=== PATIENT | female | born 1985 | race Caucasian/White ===

== ENCOUNTER 2023-01-29 10:35 | Emergency (ER) | payer MEDICAID, SELFPAY ==
[2023-01-29 10:44] VITALS: BP 99/65; PULSE 95; RESP 16; O2SAT 98
[2023-01-29 10:57] LABS: Appearance Urine Clear (Clear); Bilirubin Urine Negative (Negative); Blood Urine Negative (Negative); Color Urine Yellow (Yellow); Glucose Urine Negative (Negative); Ketones Urine Negative (Negative); Leukocyte Esterase Urine Negative (Negative); Nitrite Urine Negative (Negative); Protein Urine Negative (Negative); Specific Gravity Urine <= 1.005 (1.000-1.030); Urobilinogen Urine 0.2 (0.2-1.0)
[2023-01-29 11:12] LABS: RBC Urine 0-2 (0-2); Squamous Epithelial Cell Urine Few (None-Few); WBC Urine 0-2 (0-5)
--- NOTE | 2023-01-29 13:04 | ED_ITS ---
HPI - General Adult General Date Seen: 01/29/23 Chief complaint: Urogenital Problems, Female Stated complaint: Pain while urinating Time Seen by Provider: 01/29/23 11:02 Source: patient and automobile mechanic apprentice Mode of arrival: ambulatory Limitations: language barrier History of Present Illness HPI narrative: Patient is a 37-year-old Sami-speaking woman, history is obtained with the assistance of a mutual fund manager. She comes in with dysuria for 2 days. She tells me that she has had many urinary tract infections and is scheduled to see urologist later this month. She says most recently she had a UTI and then had pyelonephritis. She was treated with antibiotics and symptoms resolved. She has had dysuria and some pelvic discomfort for a couple of days but no associated fever or flank pain. She denies any vaginal discharge, she has not had any new sexual partners or concerns about exposure to STDs. She is worried about another UTI. She does tell me that Related Data Home Medications Medication Instructions Recorded Confirmed No Known Home Medications 01/29/23 01/29/23 Allergies Allergy/AdvReac Type Severity Reaction Status Date / Time No Known Drug Allergies Allergy Verified 01/29/23 10:44 Review of Systems Status of ROS: Reports: 6 or more systems reviewed and unremarkable except as noted in History and below PFSH PFS Social History Smoking Status: Never smoker Do you use any of these nicotine containing products: None Second hand tobacco smoke exposure: No How often do you have a drink containing alcohol: never How often do you have six or more drinks on one occasion: Never AUDIT-C Alcohol total score: 0 Non-prescribed substance use: denies use service: No Exam Narrative: Exam Narrative: Vital signs reviewed In general, an alert, well-appearing woman. Abdomen soft nontender Back no CVA tenderness Skin warm dry well perfused Const: Vital Signs, click to edit/add: Vital Signs - 24 hr 01/29/23 10:44 Pulse Rate [Pulse Oximeter] 95 Respiratory Rate 16 Blood Pressure [Ri ght Upper Arm] 99/65 Pulse Oximetry 98 Oxygen Delivery Me thod Room Air Course Course Hospital Course: Urinalysis today is entirely negative, 0-2 white cells, 0-2 red cells and no bacteria. Reviewed with her that today's urinalysis is entirely negative, she says that her UA is always negative, but then she has gone to clinic later and they have diagnosed her with a kidney infection based on blood work. This is all been at the [facility]. I tried to clarify this a little bit with her, it sounds like she has had a CT scan in the past, has a kidney stone which has not moved. She does not know whether there has ever been any inflammation on her CT scan. She believe she has had a positive urine culture once in the past. The urinalysis today really is not at all suggestive of urinary tract infection, and I tried to suggest that we await the culture results. I have discussed with her that at this time, it would suggest that her dysuria is not caused by urinary tract infection, and that there are other potential causes of dysuria such as pelvic infections. However, she says she knows her body, and says that she believes her symptoms are due to urinary tract infection and would prefer to start antibiotics, as if she does not start antibiotics now she believes this will develop into another kidney infection. As such, going to start Macrobid. Will see what the culture shows. She has urology follow-up pending. Certainly, if symptoms change if she develops new fevers, flank pain, vomiting etcetera she should come back. Otherwise, discussed with her that if her symptoms do not resolve with antibiotics I would recommend close follow-up with clinic to determine whether another etiology is responsible for her dysuria. Vital Signs Vital signs: Initial Vital Signs Temperature Source Temporal Artery Scan 01/29/23 10:44 Pulse Rate 95 01/29/23 10:44 Respiratory Rate 16 01/29/23 10:44 Blood Pressure 99/65 01/29/23 10:44 Blood Pressure Mean 76 01/29/23 10:44 Blood Pressure Position Sitting 01/29/23 10:44 Pulse Oximetry 98 01/29/23 10:44 Oxygen Delivery Method 01/29/23 10:44 Vital Signs Pulse Rate 95 01/29/23 10:44 Respiratory Rate 16 01/29/23 10:44 Blood Pressure 99/65 01/29/23 10:44 Pulse Oximetry 98 01/29/23 10:44 Oxygen Delivery Method 01/29/23 10:44 Pulse Rate 95 01/29/23 10:44 Respiratory Rate 16 01/29/23 10:44 Blood Pressure 99/65 01/29/23 10:44 Pulse Oximetry 98 01/29/23 10:44 Oxygen Delivery Method 01/29/23 10:44 Medical Decision Making Lab Data Labs: Lab Results 01/29/23 Range/Units 10:50 Urine Color Yellow (Yellow) Urine Appearance Clear (Clear) Urine pH 6.0 (5.0-8.5) Ur Specific [place] <= 1.005 (1.000-1.030) Urine Protein Negative (Negative) Urine Glucose (UA) Negative (Negative) Urine Ketones Negative (Negative) Urine Blood Negative (Negative) Urine Nitrite Negative (Negative) Urine Bilirubin Negative (Negative) Urine Urobilinogen 0.2 (0.2-1.0) Ur Leukocyte Esterase Negative (Negative) Urine RBC 0-2 (0-2) Urine WBC 0-2 (0-5) Ur Squamous Epith Cells Few (None-Few) Urine Bacteria None (None) Discharge Plan Discharge Clinical Impression: Dysuria Patient Disposition: Home, Self-Care Condition: Stable Instructions: Dysuria (ED) Additional Instructions: Antibiotic as prescribed. Follow up in your clinic if you are not improved over the next couple of days, as urinalysis is normal today and it is not clear that your symptoms are caused by urinary tract infection. If you are worsening, develop fevers, flank pain, vomiting, or other worsening, return to the emergency department. Otherwise, urology follow-up as planned. Prescriptions: No Action No Known Home Medications Follow Up/Referrals: Rose Mary Valle MD [Primary Care Provider] - Stand Alone Forms: [facility] Info Instructions
== END 2023-01-29 12:56 | disposition home or self-care (01) ==
LOC: ED 12:32
PROVIDERS: Emergency Provider Emergency Medicine; PCP Family Medicine
DX: R30.0 Dysuria (principal)
CPT/HCPCS: 81001; 87086; 99283; T1013

== ENCOUNTER 2024-12-18 02:32 | Emergency (ER) | payer OTHER, SELFPAY ==
[2024-12-18 02:38] VITALS: BP 116/87; PULSE 87; RESP 16; TEMP 35.7; O2SAT 95; BMI 27.5
--- NOTE | 2024-12-18 02:45 | CRLHL7_ITS ---
For Patients: As a result of the Century Cures Act, medical imaging exams and procedure reports are released immediately into your electronic medical record. You may view this report before your referring provider. If you have questions, please contact your health care provider. INDICATION: Flank pain. TECHNIQUE: CT abdomen and pelvis without contrast. COMPARISON: None. FINDINGS: Lower chest: Unremarkable. Liver: Normal in size and attenuation. No suspicious masses. Gallbladder and bile ducts: No stones or inflammation. No biliary dilatation. Pancreas: Unremarkable. No mass or inflammation. Spleen: Normal in size. No masses. Adrenal glands: Normal in size. No nodules. Kidneys: Normal in size. No suspicious masses, stones, or hydronephrosis. GI tract: Unremarkable. Normal in caliber. No sign of mass or inflammation. Normal appendix (). Vasculature: Abdominal aorta is normal in caliber. Lymph nodes: Multiple prominent and mildly enlarged right lower quadrant lymph nodes. Peritoneum/Abdominal Wall: Unremarkable. No sign of mass or infiltration. No free air or significant free fluid. Pelvis: Bladder is decompressed. Reproductive organs are unremarkable. Bones: Unremarkable for age. IMPRESSION: 1. No radiopaque obstructive urolithiasis or hydronephrosis. 2. Multiple prominent and mildly enlarged right lower quadrant lymph nodes. Normal appendix. Findings are overall suggestive of mesenteric adenitis. Please note that all CT scans at this facility use dose modulation, iterative reconstruction, and/or weight-based dosing when appropriate to reduce radiation dose to as low as reasonably achievable. Dictated by Vlad Aguilar MD @ 12/18/2024 3:27:11 AM (Electronically Signed)
[2024-12-18] MEDS: KETOROLAC 30 MG/ML inj IVP (02:57)
[2024-12-18] MEDS: 0.9 % SODIUM CHLORIDE 1000 ml 1,000 ML IV (02:58)
[2024-12-18 02:59] LABS: Basophils Percent Auto 0.5 % (0.0-3.0); Eosinophils Percent Auto 0.6 % (0.0-7.0); Hematocrit 40.4 % (33.0-51.0); Hemoglobin* 13.4 gm/dL (12.0-16.0); Immature Granulocytes Pct Auto 0.2 %; Lymphocytes Percent Auto 11.9 % (20-44); Mean Corpuscular HGB Conc 33 gm/dL (32-36); Mean Corpuscular Hemoglobin 29 pg (26-34); Mean Corpuscular Volume 89 fL (80-100); Monocytes Percent Auto 6.3 % (0.0-11.0); Neutrophils Percent Auto 80.5 % (42.0-72.0); Platelet Count* 252 K/uL (140-440); RDW Coefficient of Variation % 11.7 % (11.5-15.5); Red Blood Count 4.56 m/uL (4.00-5.20); White Blood Count* 12.63 K/uL (4.50-11.00)
[2024-12-18 03:00] LABS: Slide Review Reflex No
[2024-12-18 03:07] LABS: Bacteria Urine Few
[2024-12-18 03:12] LABS: Albumin* 4.9 g/dL (3.3-5.0); Chloride* 101 mmol/L (96-114); Potassium* 4.5 mmol/L (3.6-5.1); Sodium* 137 mmol/L (135-149)
[2024-12-18 03:14] LABS: Creatinine* 0.6 mg/dL (0.5-1.5); Est. Creatinine Clearance* 115.52; Estimated Glomerular Filt Rate 118 ml/min
[2024-12-18 03:15] LABS: Alanine Aminotransferase* 17 U/L (4-35); Alkaline Phosphatase* 36 U/L (40-150); Anion Gap 10 mEq/L (7-15); Aspartate Amino Transferase* 26 U/L (12-35); Bilirubin Total* 0.7 mg/dL (0.1-1.5); Blood Urea Nitrogen* 19 mg/dL (5-24); Carbon Dioxide* 26 mmol/L (20-32); Glucose* 123 mg/dL (60-115); Total Protein* 8.5 g/dL (6.0-8.3)
--- NOTE | 2024-12-18 03:57 | ED_ITS ---
HPI - Abdominal Pain General Chief Complaint: Abdominal Pain Stated Complaint: abdominal pain Time Seen by Provider: 12/18/24 02:44 History of Present Illness HPI narrative: Patient is a 39-year-old woman who presents with lower abdominal pain as well as pain in the left flank. She has had kidney stones in the past is worried she might have a UTI versus kidney stones. She has had no fevers no chills no night sweats no nausea no vomiting. Pain is 6/10. She has had no recent symptoms. No recent pregnancies. She has otherwise been in her usual state of health is been afebrile. Patient has tried Tylenol Motrin at home with no improvement in her symptoms. Related Data Home Medications ?Medication ?Instructions ?Recorded ?Confirmed No Known Home Medications 12/18/24 12/18/24 Previous Rx's ?Medication ?Instructions ?Recorded sulfamethoxazole 800 1 tab PO BID 5 days #10 tabs 12/18/24 mg-trimethoprim 160 mg tablet (Bactrim DS) Allergies Allergy/AdvReac Type Severity Reaction Status Date / Time No Known Drug Allergies Allergy Verified 01/29/23 10:44 Review of Systems Status of ROS Reports: 10 or more systems reviewed and unremarkable except as noted in History and below PFSH PFS Social History Smoking Status: Never smoker Do you use any of these nicotine containing products: None Second hand tobacco smoke exposure: No How often do you have a drink containing alcohol: never How often do you have six or more drinks on one occasion: Never AUDIT-C Alcohol total score: 0 Non-prescribed substance use: denies use service: No Exam Narrative: Exam Narrative: EXAM GENERAL: Patient appears comfortable and well. EYES: No scleral icterus. ENT: Tympanic membranes and oropharynx normal. THYROID: no thyroid nodules or thyromegaly. LYMPH: No supraclavicular or cervical lymphadenopathy. SKIN: Visible skin seen during exam normal or with benign process only. EXT: No dependent lower extremity pedal edema. HEART: Regular rate and rhythm with no murmurs, rubs, or gallops. LUNGS: Clear to auscultation bilaterally with no crackles or wheezes. ABD: Soft, non tender, non distended. PSYCH: Good eye contact, speech is not pressured. Const: Vital Signs, click to edit/add: Vital Signs - 24 hr 12/18/24 02:38 Temperature 96.3 F L Pulse Rate [Pulse Oximeter] 87 Respiratory Rate 16 Blood Pressure [Ri ght Upper Arm] 116/87 Pulse Oximetry 95 Oxygen Delivery Me thod Room Air Course Course ED Course: Patient seen and examined. Vital Signs Vital signs: Initial Vital Signs Temperature 96.3 F L 12/18/24 02:38 Temperature Source Temporal Artery Scan 12/18/24 02:38 Pulse Rate 87 12/18/24 02:38 Respiratory Rate 16 12/18/24 02:38 Blood Pressure 116/87 12/18/24 02:38 Blood Pressure Mean 96 12/18/24 02:38 Blood Pressure Position Standing 12/18/24 02:38 Pulse Oximetry 95 12/18/24 02:38 Oxygen Delivery Method Room Air 12/18/24 02:38 Vital Signs Temperature 96.3 F L 12/18/24 02:38 Pulse Rate 87 12/18/24 02:38 Respiratory Rate 16 12/18/24 02:38 Blood Pressure 116/87 12/18/24 02:38 Pulse Oximetry 95 12/18/24 02:38 Oxygen Delivery Method Room Air 12/18/24 02:38 Temperature 96.3 F L 12/18/24 02:38 Pulse Rate 87 12/18/24 02:38 Respiratory Rate 16 12/18/24 02:38 Blood Pressure 116/87 12/18/24 02:38 Pulse Oximetry 95 12/18/24 02:38 Oxygen Delivery Method Room Air 12/18/24 02:38 Medications Administered Medications: Discontinued Medications Generic Name Dose Route Start Last Admin Trade Name Freq PRN Reason Stop Dose Admin Sodium Chloride 1,000 mls @ 1,000 mls/hr 12/18/24 02:54 12/18/24 02:58 0.9 % Sodium Chloride 1000 Ml IV 12/18/24 03:53 1,000 mls/hr .Q1H PAT Administration Ketorolac Tromethamine 30 mg 12/18/24 02:54 12/18/24 02:57 Ketorolac 30 Mg/Ml Inj IVP 12/18/24 02:55 30 mg ONCE ONE Administration MDM - Abdominal Pain MDM Narrative Medical decision making narrative: Patient presents with severe left-sided flank and lower abdominal pain. UA is consistent with UTI although only a small amount is produced and urinalysis results were limited. CT abdomen pelvis normal no evidence of kidney stone. Labs are reassuring. At this point since she is a very symptomatic and to give her a g Rocephin and recommended Bactrim for the next 5 days. I realize this is fairly intense however her symptoms are quite severe. She will drink plenty fluids get plenty of rest follow-up with her primary physician as needed. Lab Data Labs: Lab Results 12/18/24 12/18/24 Range/Units 02:55 03:06 WBC 12.63 H (4.50-11.00) K/uL RBC 4.56 (4.00-5.20) m/uL Hgb 13.4 (12.0-16.0) gm/dL Hct 40.4 (33.0-51.0) % MCV 89 (80-100) fL MCH 29 (26-34) pg MCHC 33 (32-36) gm/dL RDW Coeff of Patricio 11.7 (11.5-15.5) % Plt Count 252 (140-440) K/uL Neut % (Auto) 80.5 H (42.0-72.0) % Lymph % (Auto) 11.9 L (20-44) % [place] % (Auto) 6.3 (0.0-11.0) % Eos % (Auto) 0.6 (0.0-7.0) % Baso % (Auto) 0.5 (0.0-3.0) % Neut # (Auto) 10.20 H (1.7-7.0) K/uL Lymph # (Auto) 1.50 (0.90-2.90) K/uL [place] # (Auto) 0.80 (0.00-0.90) K/UL Eos # (Auto) 0.10 (0.00-0.50) K/uL Baso # (Auto) 0.10 (0.00-0.30) K/uL Abs Immat Gran (auto) 0.00 (0.00-0.30) K/uL Imm/Tot Granulo (auto) 0.2 % Sodium 137 (135-149) mmol/L Potassium 4.5 (3.6-5.1) mmol/L Chloride 101 (96-114) mmol/L Carbon Dioxide 26 (20-32) mmol/L Anion Gap 10 (7-15) mEq/L BUN 19 (5-24) mg/dL Creatinine 0.6 (0.5-1.5) mg/dL Estimated Creat Clear 115.52 Estimated GFR 118 ml/min Glucose 123 H (60-115) mg/dL Calcium 9.0 (8.4-10.6) mg/dL Total Bilirubin 0.7 (0.1-1.5) mg/dL AST 26 (12-35) U/L ALT 17 (4-35) U/L Alkaline Phosphatase 36 L (40-150) U/L Total Protein 8.5 H (6.0-8.3) g/dL Albumin 4.9 (3.3-5.0) g/dL Urine Color Cancelled Urine Appearance Cancelled Urine pH Cancelled Ur Specific [place] Cancelled Urine Protein Cancelled Urine Glucose (UA) Cancelled Urine Ketones Cancelled Urine Blood Cancelled Urine Nitrite Cancelled Urine Bilirubin Cancelled Urine Urobilinogen Cancelled Ur Leukocyte Esterase Cancelled Urine RBC Cancelled 2-5 A Urine WBC Cancelled 2-5 Urine WBC Clumps Cancelled Ur Squamous Epith Cells Cancelled None [place] Biurate Crystals Cancelled Calcium Carbonate Cryst Cancelled Calcium Phosphate Cryst Cancelled Calcium Oxalate Crystal Cancelled Cystine Crystals Cancelled Uric Acid Crystals Cancelled Triple Phos Crystals Cancelled Sulfur Crystals Cancelled Cholesterol Crystals Cancelled Tyrosine Crystals Cancelled Hippuric Acid Crystals Cancelled Amorphous Sediment Cancelled Other Sediment Cancelled Urine Bacteria Cancelled Few A Fatty Casts Cancelled Hyaline Casts Cancelled Fine Granular Casts Cancelled Coarse Granular Casts Cancelled Waxy Casts Cancelled RBC Casts Cancelled WBC Casts Cancelled Other Casts Cancelled Urine Starch Cancelled Urine Mucus Cancelled Urine Trichomonas Cancelled Urine Yeast Cancelled Discharge Plan Discharge Clinical Impression: UTI (urinary tract infection) Patient Disposition: Home, Self-Care Condition: Stable Instructions: Urinary Tract Infection in Women (ED) Activity Level: No Restrictions Discharge Diet: Regular Prescriptions: New sulfamethoxazole-trimethoprim [Bactrim DS] 800-160 mg tablet 1 tab PO BID 5 Days Qty: 10 0RF No Action No Known Home Medications Follow Up/Referrals: Rose Mary Valle MD [Primary Care Provider] - Stand Alone Forms: My[facility] Info Instructions
[2024-12-18] MEDS: cefTRIAXone 1 GM in 0.9 % SODIUM CHLORIDE Mini-bag 100 ML IVPB (04:06)
== END 2024-12-18 04:30 | disposition home or self-care (01) ==
LOC: ED 04:14
PROVIDERS: Emergency Provider Internal Medicine; PCP Family Medicine
DX: N39.0 Urinary tract infection, site not specified (principal)
CPT/HCPCS: 36415; 74176; 80053; 81001; 81003; 81015; 85025; 87086; 96361; 96374; 96375; 99283; 99284; J0696; J1885; J7030

== ENCOUNTER 2025-07-07 20:11 | Emergency (ER) | payer MEDICAID, SELFPAY ==
--- OUTSIDE RECORDS SUMMARY | 2025-07-07 20:14 | XMS_ITS | Clinical Summary ---
Author Organization [facility] Address [address] [place] [address] Care Team Providers Care Principal Hardware Architect Name Role Phone Rose Mary Valle MD Primary Care Provider Allergies No known active allergies Medications No known medications Active Problems Problem Noted Date Diagnosed Date Pap smear for cervical cancer screening 03/13/20 24 Overview (03/13/2024): 02/2024 NIL/HPV negative Plan: HPV based testing in 5 years H. pylori infection 09/11/2017 Overview (09/11/2017): EGD 08/2017 H. pylori Resolved Problems Problem Noted Date Diagnosed Date Resolved Date Care and examination of lactating mother 02/19/2022 12/18/2024 08/07/2021 12/18/2024 Overview (02/07/2022): Component Latest Ref Rng & Units 02/05/2022 Vaginal/Rectal OB Strep B PCR Positive (A) Estimated Date of Delivery: 03/03/22 Patient's last menstrual period was 05/27/2021 (exact date). Last Tdap- 12/11/2021 Last Flu vaccine- 09/11/2019 Glucose (GTT) result- Component Latest Ref Rng & Units 12/11/2021 HEMOGLOBIN 12.0 - 16.0 g/dL 10.6 (L) MCV 80 - 100 fL 88 GLUCOSE,GESTATIONAL 65 - 140 mg/dL 143 (H) TREPONEMA PALLIDUM Negative Negative Component Latest Ref Rng & Units 12/15/2021 GLUC URSULA,FAST (GEST) 65 - 95 mg/dL 121 (H) GLUC URSULA,1HR (GEST) 65 - 180 mg/dL 156 GLUC URSULA,2HR (GEST) 65 - 155 mg/dL 156 (H) GLUC URSULA,3HR (GEST) 65 - 140 mg/dL 147 (H) 20 week US FINDINGS: Sonographic imaging demonstrates a single living intrauterine gestation. Fetus demonstrates a regular cardiac rate of 154 beats per minute. Fetus has a vertex position. The placenta lies posteriorly without evidence of placenta previa. Amniotic fluid volume appears normal. Single deepest vertical pocket: 3.7 cm. The cervix is closed and measures 3.3 cm in length. The composite ultrasound gestational age is calculated at 24 weeks 4 days with an estimated sonographic due date of 03/01/2022. No Known Allergies OB History Para Term AB Living 5 4 4 0 0 4 SAB TAB Ectopic Multiple Live Births 0 0 0 0 1 # Outcome Date GA Lbr Eliel/2nd Weight Sex Delivery Anes PTL Lv 5 Current 4 Term 09/09/18 39w1d 3.01 kg (6 lb 10 oz) F Vag NONE N RENATO Name: Silvestre 3 Term 02/19/15 39w1d 3.01 kg (6 lb 10 oz) F Vag 2 Term 09/02/13 40w0d 06:00 2.72 kg (6 lb) F Vag Comments: System Generated. Please review and update details. 1 Term 02/17/11 40w0d 04:00 2.44 kg (5 lb 6 oz) F Vag Create lab flowsheet for OB labs- Component Latest Ref Rng & Units 08/03/2021 08/03/2021 08/03/2021 12:02 PM 12:06 PM 12:06 PM HEMOGLOBIN 12.0 - 16.0 g/dL 12.3 MCV 80 - 100 fL 87 ANTIBODY SCREEN Negative Negative SPECIMEN EXPIRATION DATE/TIME 08/06/21 23:59 RUBELLA IGG ANTIBODY Positive CHLAMYDIA PROBE Negative N GONORRHOEAE PROBE Negative HIV-1/HIV-2 ANTIBODY Non-Reactive Non-Reactive ABORH O Rh Positive HBSAG Nonreactive Nonreactive TREPONEMA PALLIDUM Negative Negative Component Latest Ref Rng & Units 08/03/2021 12:06 PM HEMOGLOBIN 12.0 - 16.0 g/dL MCV 80 - 100 fL ANTIBODY SCREEN Negative SPECIMEN EXPIRATION DATE/TIME RUBELLA IGG ANTIBODY 7.42 CHLAMYDIA PROBE N GONORRHOEAE PROBE HIV-1/HIV-2 ANTIBODY Non-Reactive ABORH HBSAG Nonreactive TREPONEMA PALLIDUM Negative Past Medical History: . Date Supervision of other normal 03/10/2013 Past Surgical History: . Laterality Date ESOPHAGOGASTRODUODENOSCOPY N/A EGD 08/2017 H. pylori NO PREVIOUS SURGERY No data on file. Problems (from 08/03/21 to present) No problems associated with this episode. Jessie Jones RN.....08/07/2021 8:16 AM Encounter for supervision of normal in third trimester 03/25/2018 11/10/2018 02/21/2018 11/10/2018 Overview (09/08/2018): GBS Negative Component Latest Ref Rng & Units 2018 Culture No Group B Streptococcus isolated. Estimated Date of Delivery: 09/15/18 Patient's last menstrual period was 12/09/2017 (exact date). Last Tdap- 06/23/2018 Last Flu vaccine- declines No Known Allergies Obstetric History T3 L3 SAB0 TAB0 Ectopic0 Multiple0 Live Births0 # Outcome Date GA Lbr Eliel/2nd Weight Sex Delivery Anes PTL Lv 4 Current 3 Term 02/19/15 39w1d 3.01 kg (6 lb 10 oz) F Vag 2 Term 09/02/13 40w0d 06:00 2.72 kg (6 lb) F Vag 1 Term 02/17/11 40w0d 04:00 2.44 kg (5 lb 6 oz) F Vag Create lab flowsheet for OB labs- Component Latest Ref Rng & Units 02/21/2018 02/21/2018 02/21/2018 11:33 AM 11:33 AM 11:33 AM HEMOGLOBIN 12.0 - 16.0 g/dL 12.1 MCV 80 - 100 fL 89 ANTIBODY SCREEN Negative Negative SPECIMEN EXPIRATION DATE/TIME 02/24/18 23:59 RUBELLA IGG ANTIBODY Positive 7.57 HIV-1/HIV-2 ANTIBODY Non-Reactive Non-Reactive ABORH O Rh Positive HBSAG Nonreactive Nonreactive TREPONEMA PALLIDUM Negative Negative TSH 0.35 - 4.94 uIU/mL 0.39 HEMOGLOBIN A1C SCREENING <6.4 % 5.3 GLUCOSE,GESTATIONAL 65 - 139 mg/dL Component Latest Ref Rng & Units 06/23/2018 HEMOGLOBIN 12.0 - 16.0 g/dL MCV 80 - 100 fL ANTIBODY SCREEN Negative SPECIMEN EXPIRATION DATE/TIME RUBELLA IGG ANTIBODY HIV-1/HIV-2 ANTIBODY Non-Reactive ABORH HBSAG Nonreactive TREPONEMA PALLIDUM Negative TSH 0.35 - 4.94 uIU/mL HEMOGLOBIN A1C SCREENING <6.4 % GLUCOSE,GESTATIONAL 65 - 139 mg/dL 160 (H) Past Medical History: Diagnosis Date Supervision of other normal 03/10/2013 Past Surgical History: Procedure Laterality Date ESOPHAGOGASTRODUODENOSCOPY N/A EGD 08/2017 H. pylori NO PREVIOUS SURGERY No data on file. Problem List No episode was linked to this visit. Jessie Crawford RNC.....02/21/2018 2:47 PM Supervision of other normal 07/14/2014 04/08/2015 Overview (02/10/2015): Flu vaccine 09/03/2014 Marginal placenta previa on 20 week ultrasound, 6 cm from os on 28 week ultrasound TDaP 12/06/2014 GBS negative. Supervision of other normal 03/10/2013 10/21/2013 Overview (08/28/2013): It's a girl! TDaP 06/09/13 GBS negative Flu Vaccine 08/28/2013 HEMOGLOBIN (g/dL) Date Value 08/11/2013 12.0 Encounters Date Type Department Care Team Description 06/16/2025 1:25 PM CDT Office Visit [facility] [address] [place] [address] Siddhartha Garrido, Ear Problem (Right Ear feels plugged. Has felt like that for two week now and hears ringing. When she was cleaning her ear she felt like she clogged it ) 06/16/2025 Travel 05/03/2025 8:40 AM CDT Office Visit [facility] [address] [place] [address] Rose Mary Valle MD Physical (39 y.o ) 05/03/2025 Travel 05/03/2025 Telephone [facility] [address] [place] [address] Shellie Quintana MD Prior Authorization (cefadroxil 1 gram tablet (CLOSED)) 04/30/2025 9:50 AM CDT Office Visit [facility] [address] [place] [address] Shellie Quintana MD Urinary Tract Infection (3 days ago - burning sensation, right back pain ) 04/30/2025 Telephone [facility] [address] [place] [address] Shellie Quintana MD Refill Request (Cefoxidril) 04/30/2025 Travel from Last 3 Months Immunizations Immunization Administration Dates Next Due AMB Influenza, IIV4 PF (=>6 mos Flulaval,Fluzone Fluarix)(Flu Clinic Only) 09/11/2019 Hepatitis B (Adult) 05/03/2025 Influenza, IIV3 (Age >=3 years) 08/28/2013 Influenza, IIV4 08/08/2017,09/03/2014 Td (Age >=7 Years) 10/09/2010 Tdap 12/11/2021, 8,12/06/2014,2012 Family History Medical History Relation Name Comments Diabetes Mother Relation Name Status Comments Mother Social History Tobacco Use Types Packs/Day Years Used Date Smoking Tobacco: Never Smokeless Tobacco: Never Tobacco Cessation:Counseling Given: No Alcohol Use Standard Drinks/Week Comments Yes 0 (1 standard drink = 0.6 oz pur e alcohol) seldom, socially PHQ-2 Answer Date Recorded PHQ-2 TOTAL SCORE 0 05/03/2025 Social Connections Answer Date Recorded Do you often feel lonely or isolated from those around you? 0 12/16/2024 Financial Resource Strain Answer Date R ecorded Difficulty of Paying Living Expenses 3 12/16/2024 Difficulty of Paying Living Expenses Not on file 12/16/2024 Food Insecurity Answer Date Recorded Do you worry your food will run out before you are able to buy more? 1 12/16/2024 Transportation Needs Answer Date Record ed Does lack of transportation keep you from medica l appointments? 1 12/16/2024 Does lack of transportation keep you from work, meetings or getting things that you need? 1 12/16/2024 Housing Stability Answer Date Recorded What is your housing situation today? 1 12/16/2024 Utilities Answer Date Recorded Do you have trouble paying f or utilities (for example, heat, electricity, water, phone)? 1 12/16/2024 Comments No Sex and Gender Information Value Date Recorded Sex Assigned at Not on file Legal Sex Female 8:05 AM STEM FRAZER Gender Identity Not on file Sexual Orientation Not on file Obstetrics History Para Term AB IAB SAB Ectopic Multiple Livin g Live Births 5 5 5 5 2 Date Outcome GA Total Labor Labor//3rd Weight Sex Type Anes PTL Renato A1 A5 Name Clin 2010 Term 40w 0d 4h 00m/ 2.44 kg (5 lb 6 oz) F Vag 2012 Term 40w 0d 6h 00m/ 2.72 kg (6 lb) F Vag Comments:System Genera gallito. Please review and update details. 2014 Term 39w 1d 3.01 kg (6 lb 10 oz) F Vag 2017 Term 39w 1d 4h 30m 3.01 kg (6 lb 10 oz) F Vag None N Livin g Silvestre Tori Complications:None Delivery Location:[place] 2021 Term 38w 3d 3.2 kg (7 lb 1 oz) F Vag-S pont Livin g Last Filed Vital Signs Vital Sign Reading Time Taken Comments Blood Pressure 98/66 06/16/2025 1:23 PM CDT Pulse 75 06/16/2025 1:23 PM CDT Temperature 36.9 C (98.4 F) 12/28/2024 9:39 AM STEM FRAZER Respiratory Rate 16 04/06/2024 1:10 PM CDT Oxygen Saturation 99% 06/16/2025 1:23 PM CDT Inhaled Oxygen Concentration - - Weight 74.7 kg (164 lb 11.2 oz) 06/16/2025 1:23 PM CDT Height 167.6 cm (5' 6) 05/03/2025 8:49 AM CDT Body Mass Index 26.58 05/03/2025 8:49 AM CDT Plan of Treatment Health Maintenance Due Date Last Done Comments COVID-19 vaccine series (1 - 2023-25 season) 2024 Hepatitis B series for 19+ (2 of 3 - 19+ 3-dose series) 05/31/2025 05/03/2025 Influenza Vaccine (#1) 2025 9, 08/08/2017, 09/03/2014, Additional history exists BMI (ht and wt on same day) for age 18+ 05/03/2026 05/03/2025, 08/19/2024, 04/01/2024, Additional history exists Depression screening for age 12+ 05/03/2026 05/03/2025, 03/05/2024, 03/02/2024, Additional history exists Pap test for age 21-65 03/02/2029 , 03/02/2024, 07/27/2020, Additional history exists Tetanus booster 12/11/2031 12/11/2021, 05/27, 12/06/2014, Additional history exists HIV for age 15-65 Completed 08/03/2021, , 07/05/2014, Additional history exists Hepatitis C screening for age 18-79 Completed 01/23/2023 Pneumococcal series for age 6-49 Aged Out No longer eligible based on patient's age to complete this topic Procedures Procedure Name Priority Date/Time Associated Diagnosis Comments COMP METABOLIC PANEL Routine 05/03/2025 9:25 AM CDT Recurrent UTI Diabetes mellitus screening URINALYSIS MICROSCOPIC Routine 04/30/2025 10:11 AM CDT UTI (urinary tract infection), uncomplicated URINE CULTURE Routine 04/30/2025 10:11 AM CDT UTI (urinary tract infection), uncomplicated URINALYSIS MACROSCOPIC - [facility] ONLY POC DIP ([facility]) Routine 04/30/2025 10:11 AM CDT UTI (urinary tract infection), uncomplicated DRAPERY ROD ASSEMBLER THIN PREP PAP SCREEN IMAGED Routine 03/02/2024 1:30 PM CDT Cervical cancer screening LC HCV ANTIBODY RFX TO QUANT PCR Routine 01/23/2023 1:45 PM STEM FRAZER Need for hepatitis C screening test ANTI HIV 1/2 Routine 08/03/2021 12:06 PM CDT Supervision of other normal (HC) from Last 3 Months or Most Recently Relevant to Health Maintenance Results * COMP METABOLIC PANEL (05/03/2025 9:25 AM CDT) GLUCOSE 90 65 - 99 mg/dL [facility] Comment: Fasting reference interval UREA NITROGEN (BUN) 15 7 - 25 mg/dL [facility] CREATININE 0.68 0.50 - 0.97 mg/dL [facility] EGFR 115 > OR = 60 mL/min/1. 73m2 [facility] BUN/CREATININE RATIO SEE NOTE: 6 - 22 (calc) [facility] Comment: Not Reported: BUN and Creatinine are within reference range. SODIUM 137 135 - 146 mmol/L [facility] POTASSIUM 4.2 3.5 - 5.3 mmol/L [facility] CHLORIDE 104 98 - 110 mmol/L [facility] CARBON DIOXIDE 25 20 - 32 mmol/L [facility] CALCIUM 9.1 8.6 - 10.2 mg/dL [facility] PROTEIN, TOTAL 7.8 6.1 - 8.1 g/dL [facility] ALBUMIN 4.6 3.6 - 5.1 g/dL [facility] GLOBULIN 3.2 1.9 - 3.7 g/dL (calc) [facility] ALBUMIN/GLOBULIN RATIO 1.4 1.0 - 2.5 (calc) [facility] BILIRUBIN, TOTAL 0.4 0.2 - 1.2 mg/dL [facility] ALKALINE PHOSPHATASE 44 31 - 125 U/L [facility] AST 15 10 - 30 U/L [facility] ALT 15 6 - 29 U/L [facility] Blood BLOOD SPECIMEN / Unknown 05/03/2025 9:25 AM CDT 05/03/2025 9:29 AM CDT Narrative [facility] - 05/04/2025 6:00 AM CDT FASTING:YES FASTING: YES Rose Mary Valle MD CHEMISTRY Final R esult Performing Organization Address City/[facility]/ZIP Co de Phone Number [facility] [address] [place] [address], [facility] [address] [place] [address] * (ABNORMAL) POCT Urinalysis Dipstick Only (04/30/2025 10:11 AM CDT) PH 6.0 5.0 - 8.0 [facility] SPECIFIC GRAVITY 1.010 1.001 - 1.035 [facility] GLUCOSE NEGATIVE NEGATIVE [facility] BILIRUBIN NEGATIVE NEGATIVE [facility] KETONES NEGATIVE NEGATIVE [facility] OCCULT BLOOD TRACE(A) NEGATIVE [facility] PROTEIN NEGATIVE NEGATIVE [facility] NITRITE POSITIVE(A) NEGATIVE [facility] LEUKOCYTE ESTERASE NEGATIVE NEGATIVE [facility] Urine URINE SPECIMEN / Unknown 04/30/2025 10:11 AM CDT 04/30/2025 10:11 AM CDT us Shellie Quintana MD URINE Fi nal Result Performing Organization Address City/[facility]/ZIP Co de Phone Number [facility] [address] [place] [address], [place] [phone] [facility] [address] [place] [address] * URINALYSIS MICROSCOPIC (04/30/2025 10:11 AM CDT) RBC 0-2 0-2, None Seen /HPF 04/30/2025 4:04 PM CDT [facility] WBC 3-5 0-2, 3-5, None Seen /HPF 04/30/2025 4:04 PM CDT [facility] BACTERIA None Seen None Seen, Rare, Few Bacteria/ HPF 04/30/2025 4:04 PM CDT [facility] EPITHELIAL CELLS None Seen None Seen, Few Epi/HPF 04/30/2025 4:04 PM CDT [facility] HYALINE CASTS 0-2 0-2, 3-5 /LPF 04/30/2025 4:04 PM CDT [facility] Urine URINE SPECIMEN / Unknown Non-Blood / Unknown 04/30/2025 10:11 AM CDT 04/30/2025 10:11 AM CDT us Shellie Quintana MD URINE Fi nal Result [facility] [address] [place] [address], * (ABNORMAL) URINE CULTURE (04/30/2025 10:11 AM CDT) CULTURE RESULT(A) 05/02/2025 7:15 AM CDT [facility] CULTURE 10,000-50,000 CFU/mL Escherichia coli 05/02/2025 7:15 AM CDT [facility] Urine URINE SPECIMEN / Unknown Non-Blood / Unknown 04/30/2025 10:11 AM CDT 04/30/2025 10:11 AM CDT Narrative Organism Antibiotic Method Susceptibility Escherichia coli TRIMETHOPRIM/SULF <=1/19: S Escherichia coli AMPICILLIN <=2: S Escherichia coli CEFAZOLIN <=1: S Escherichia coli CEFAZOLIN-UC <=1: S Comment:Cefazolin-UC interpretations are for therapy of uncomplicated UTIs due to E.coli, K.pneumoniae, or P.mirablis. Cefazolin breakpoint is used as a surrogate to predict results for the oral agents - cefdinir, cefuroxime, and cephalexin, when used for therapy of uncomplicated UTIs due to E coli, K, pneumoniae, and P. mirabilis. The FDA recommends cefadroxil susceptibility can be deduced from cefazolin. Escherichia coli GENTAMICIN <=1: S Escherichia coli CEFTRIAXONE <=0.25: S Escherichia coli CEFTAZIDIME <=0.5: S Escherichia coli LEVOFLOXACIN <=0.12: S Escherichia coli CIPROFLOXACIN <=0.06: S Escherichia coli PIPERACILLIN/TAZO <=4: S Escherichia coli AMPICILLIN/SULBACTAM <=2: S Escherichia coli CEFEPIME <=0.12: S Escherichia coli MEROPENEM <=0.25: S Escherichia coli NITROFURANTOIN <=16: S us Shellie Quintana MD MICROBIOLOGY Fi nal Result [facility] [address] [place] [address], * DRAPERY ROD ASSEMBLER THIN PREP PAP SCREEN IMAGED (03/02/2024 1:30 PM CDT) Case Report Gynecologic Cytology Report Case: [id number] Authorizing Provider: Rose Mary Valle MD Collected: 03/02/2024 1330 Ordering Location: [facility] Received: 03/02/2024 1412 Clinic First Screen: Nicolas Jacob Specimen: DRAPERY ROD ASSEMBLER ThinPrep Vial Screening, Cervical 03/11/2024 12:58 PM CDT [facility] INTERPRETATION/ RESULT NEGATIVE FOR INTRAEPITHELIAL LESION OR MALIGNANCY (NIL) (none) 03/11/2024 12:58 PM CDT [facility] at 1258 CDT SPECIMEN ADEQUACY Satisfactory for evaluation No endocervical component seen Scant cellularity 03/11/2024 12:58 PM CDT [facility] HPV REQUEST HPV and PAP 03/11/2024 12:58 PM CDT [facility] Date of LMP 02/20/2024 03/11/2024 12:58 PM CDT [facility] Last Pap Date 07/27/20 03/11/2024 12:58 PM CDT [facility] Last Pap Result NIL 12:58 PM CDT [facility] Abnormal Pap or Newton Bx in last 5 years No 03/11/2024 12:58 PM CDT [facility] Menstrual Status Regular Periods 03/11/2024 12:58 PM CDT [facility] Newton Bx Done Today No 03/11/2024 12:58 PM CDT [facility] Additional Information None given 03/11/2024 12:58 PM CDT [facility] Comment: Cytology is screened at [facility] - [address] [address] and [facility] - [address] [place] [address], [place] [address] and [facility] - [address] [place] [address] Interpreted at [facility] - [address] [place] [address], [place] [address] Automated Review Successful 03/11/2024 12:58 PM CDT [facility] Comment:Specimen processed s uccessfully by automated taker off drying kiln device, ThinPrep Imaging System, [employer] ANCILLARY TESTING DRAPERY ROD ASSEMBLER HPV Ordered, Please see separate report 03/11/2024 12:58 PM CDT [facility] Note The pap test is a screening technique, not a diagnostic procedure. It is used primarily to screen for squamous cancers and precursor lesions. Published studies have shown that it is subject to both false negative and false positive results. The pap test should not be used as the sole means to diagnose or exclude pre-malignant and malignant lesions. 03/11/2024 12:58 PM CDT [facility] Other (Cervical) Non-Blood / Unknown 03/02/2024 1:30 PM CDT 03/02/2024 2:12 PM CDT Rose Mary Valle MD PATHOLOGY/CYTOLOGY Mady mejia Result [facility] [address] [place] [address], [place] * LC HCV ANTIBODY RFX TO QUANT PCR (01/23/2023 1:45 PM STEM FRAZER) Pathologist [facility] HCV Ab Non Reactive Non Reactive 01/25/2023 10:07 PM [facility] ([facility]) Blood BLOOD SPECIMEN / Unknown Venipuncture / Unknown 01/23/2023 1:45 PM STEM FRAZER 01/23/2023 1:50 PM STEM FRAZER Narrative [facility] - 01/25/2023 10:07 PM STEM FRAZER Performed at: [address] [place] [id number] Deliverer Outside: Bogdan Douglas MD, Phone: [phone] Rose Mary Valle MD LABORATORY Final R esult [facility] (CET) [facility] [place] [address], * ANTI HIV 1/2 (08/03/2021 12:06 PM CDT) Pathologist [facility] HIV-1/HIV-2 ANTIBODY Non-Reacti ve Non-Reacti ve 08/03/2021 6:57 PM CDT [facility] Comment:HIV-1 p24 and HIV-1/ HIV-2 Ab not detected. Blood BLOOD SPECIMEN / Unknown Venipuncture / Unknown 08/03/2021 12:06 PM CDT 08/03/2021 12:07 PM CDT Rose Mary Valle MD SEND OUTS Final R esult [facility] [address] [place] [address], [place] from Last 3 Months or Most Recently Relevant to Health Maintenance Additional Health Concerns Infection Onset Date Last Indicated ESBL 09/29/2019 09/29/2019 Insurance MEDICAID [place] Care Teams Principal Hardware Architect Relationship Specialty Start Date End Date Rose Mary Valle MD [address] [facility] [address] PCP - General Family Practice 07/24/13
[2025-07-07 20:26] VITALS: BP 106/71; PULSE 70; RESP 16; TEMP 36.6; O2SAT 98; BMI 27.5
--- NOTE | 2025-07-07 20:40 | ED.FEMALEGU ---
HPI - Female Genitourinary General Time Seen by Provider: 20:40 Date Seen: 07/07/25 Chief complaint: Urogenital Problems, Female Stated complaint: lower stomach pain Time Seen by Provider: 07/07/25 20:39 Source: patient, RN notes reviewed and casino floorperson Mode of arrival: ambulatory Limitations: no limitations History of Present Illness HPI Narrative: This 39-year-old female is coming in with lower abdominal pain and dysuria. On Saturday she had lower abdominal pain, feels it is more pelvic now. She has had discomfort with urination and burning with urination. She has noted increased frequency. No hematuria. She has been going frequently with small amounts. She last took ibuprofen about 6:00 p.m., has been alternating Tylenol and ibuprofen, pain is still a 6/10. She has had some chills but does not have a thermometer at home, did not check her temperature. She did have an episode of diarrhea last week that she thought was an illness. That has subsided. Her has had a vasectomy. She has a prior urine culture in our system from 12/18/2024 with E coli, greater than 100,000 CFU with resistance only to ampicillin, otherwise sensitive. No vaginal discharge or drainage, no vaginal itching. No history of kidney stones, negative CT in November for stones but did show probable mesenteric adenitis. MD elicited complaint: dysuria Related Data Previous Rx's ?Medication ?Instructions ?Recorded sulfamethoxazole 800 1 tab PO BID 5 days #10 tabs 12/18/24 mg-trimethoprim 160 mg tablet (Bactrim DS) cephalexin 500 mg tablet 500 mg PO TID #15 tabs 07/07/25 Allergies Allergy/AdvReac Type Severity Reaction Status Date / Time No Known Drug Allergies Allergy Verified 01/29/23 10:44 Review of Systems Status of ROS: Reports: 6 or more systems reviewed and unremarkable except as noted in History and below PFSH PFS Social History Smoking Status: Never smoker Do you use any of these nicotine containing products: None Second hand tobacco smoke exposure: No How often do you have a drink containing alcohol: never How often do you have six or more drinks on one occasion: Never AUDIT-C Alcohol total score: 0 Non-prescribed substance use: denies use service: No Exam Const: Vital Signs, click to edit/add: Vital Signs - 24 hr 07/07/25 20:26 Temperature 98 F Pulse Rate [Pulse Oximeter] 70 Respiratory Rate 16 Blood Pressure [Ri ght Upper Arm] 106/71 Pulse Oximetry 98 Oxygen Delivery Me thod Room Air This 39-year-old female is alert, interactive, no apparent distress. Sitting up in the bed, able to lie back without difficulty. Speaking in complete sentences, voice is normal. Conjugate gaze, sclera clear. Lungs are clear, good air entry, no wheezing crackles. CV regular rate and rhythm, no murmur. She has no tachypnea, no accessory muscle use. Abdomen with normal bowel sounds, soft, no distention noted. No organomegaly, no rebound or guarding but she does complain of generalized lower abdominal/pelvic discomfort throughout. There really is no rebound or guarding. Documenting provider has reviewed patient's vital signs: yes Course Course ED Course: She is requesting something for discomfort, will try dose of IV Toradol. Do not think she needs imaging at this time looking at her most recent ED visits back in November. She has provided urine, will await that result. Will confirm negative urine test. Will get basic labs. If urinalysis is not showing us concern of infection or if there is concerning changes on her other basic labs, may consider imaging. May need to consider CT imaging and or pelvic imaging, await labs to potentially guide any imaging. Think this likely represents UTI at this point. We will consider other etiologies based on any changes in labs. Reevaluation(s) Time of Reevaluation #1: 21:50 Reevaluation #1: Did review laboratory findings with patient, her CBC and C-reactive protein are reassuring against any significant infection. She did tell me that she did feel a little left flank discomfort developing. She is receiving 2 g IV Rocephin given that she was not feeling well. We did discuss ascending urinary tract infection with pyelonephritis. It is doubtful that she needs hospitalization, again we are giving 2 g IV Rocephin to start her antibiotics. She is not meeting hospitalization criteria. She can keep orals, no fever, labs and vitals are reassuring. I do think she is stable to discharge for outpatient trial of antibiotics. We did review signs and symptoms for return. She does feel like her symptoms have improved with the Toradol. Vital Signs Vital signs: Initial Vital Signs Temperature 98 F 07/07/25 20:26 Temperature Source Temporal Artery Scan 07/07/25 20:26 Pulse Rate 70 07/07/25 20:26 Pulse Rhythm Regular 07/07/25 20:26 Respiratory Rate 16 07/07/25 20:26 Blood Pressure 106/71 07/07/25 20:26 Blood Pressure Mean 82 07/07/25 20:26 Blood Pressure Position Sitting 07/07/25 20:26 Pulse Oximetry 98 07/07/25 20:26 Oxygen Delivery Method Room Air 07/07/25 20:26 Vital Signs Temperature 98 F 07/07/25 20:26 Pulse Rate 70 07/07/25 20:26 Respiratory Rate 16 07/07/25 20:26 Blood Pressure 106/71 07/07/25 20:26 Pulse Oximetry 98 07/07/25 20:26 Oxygen Delivery Method Room Air 07/07/25 20:26 Temperature 98 F 07/07/25 20:26 Pulse Rate 70 07/07/25 20:26 Respiratory Rate 16 07/07/25 20:26 Blood Pressure 106/71 07/07/25 20:26 Pulse Oximetry 98 07/07/25 20:26 Oxygen Delivery Method Room Air 07/07/25 20:26 Medications Administered Medications: Discontinued Medications Generic Name Dose Route Start Last Admin Trade Name Freq PRN Reason Stop Dose Admin Ceftriaxone Sodium 2 gm/ 100 mls @ 200 mls/hr 07/07/25 21:22 07/07/25 22:02 Sodium Chloride IVPB 07/07/25 21:23 Infused ONCE ONE Infusion Ketorolac Tromethamine 15 mg 07/07/25 20:50 07/07/25 21:01 Ketorolac 15 Mg/Ml Inj IVP 07/07/25 20:51 15 mg ONCE ONE Administration MDM - Female Genitourinary Lab Data Labs: Lab Results 07/07/25 07/07/25 07/07/25 Range/Units 20:39 20:50 21:03 WBC 11.08 H (4.50-11.00) K/uL RBC 4.15 (4.00-5.20) m/uL Hgb 12.2 (12.0-16.0) gm/dL Hct 36.8 (33.0-51.0) % MCV 89 (80-100) fL MCH 29 (26-34) pg MCHC 33 (32-36) gm/dL RDW Coeff of Patricio 11.9 (11.5-15.5) % Plt Count 272 (140-440) K/uL Neut % (Auto) 66.9 (42.0-72.0) % Lymph % (Auto) 23.8 (20-44) % Payne % (Auto) 7.1 (0.0-11.0) % Eos % (Auto) 1.4 (0.0-7.0) % Baso % (Auto) 0.6 (0.0-3.0) % Neut # (Auto) 7.40 H (1.7-7.0) K/uL Lymph # (Auto) 2.60 (0.90-2.90) K/uL Payne # (Auto) 0.80 (0.00-0.90) K/UL Eos # (Auto) 0.20 (0.00-0.50) K/uL Baso # (Auto) 0.10 (0.00-0.30) K/uL Abs Immat Gran (auto) 0.00 (0.00-0.30) K/uL Imm/Tot Granulo (auto) 0.2 % Sodium 136 (135-149) mmol/L Potassium 4.0 (3.6-5.1) mmol/L Chloride 103 (96-114) mmol/L Carbon Dioxide 27 (20-32) mmol/L Anion Gap 6 L (7-15) mEq/L BUN 12 (5-24) mg/dL Creatinine 0.7 (0.5-1.5) mg/dL Estimated Creat Clear 99.01 Estimated GFR 114 ml/min Glucose 105 (60-115) mg/dL Lactate 0.6 (0.5-1.9) mmol/L Calcium 9.0 (8.4-10.6) mg/dL C-Reactive Protein 0.6 (0.5-1.0) mg/dL Urine Color [place] A (Yellow) Urine Appearance Clear (Clear) Urine pH 6.0 (5.0-8.5) Ur Specific [place] 1.010 (1.000-1.030) Urine Protein 1+ A (Negative) Urine Glucose (UA) Trace A (Negative) Urine Ketones Negative (Negative) Urine Blood 2+ A (Negative) Urine Nitrite Positive A (Negative) Urine Bilirubin Negative (Negative) Urine Urobilinogen 1.0 (0.2-1.0) Ur Leukocyte Esterase 3+ A (Negative) Urine RBC 2-5 A (0-2) Urine WBC 10-25 A (0-5) Ur Squamous Epith Cells Few (None-Few) Urine Bacteria Few A (None) Urine HCG, Qual Negative (Negative) Lab Acknowledgement Test Added Discharge Plan Discharge Clinical Impression: Urinary tract infection Patient Disposition: Home, Self-Care Condition: Stable Instructions: Urinary Tract Infection in Women (ED) Additional Instructions: Start oral antibiotics tomorrow and take as prescribed. Drink plenty of fluids, this can help with minimizing urinary tract infection symptoms. These should go way with treatment with antibiotics as well. Your appetite for solid food should improve as you feel better. It is important to complete antibiotics. If you are not improving in the next couple days on the antibiotics, feel you are worsening or becoming more ill at any point, please seek re-evaluation. Activity Level: Activity as Tolerated Prescriptions: New cephalexin 500 mg tablet 500 mg PO TID Qty: 15 0RF No Action sulfamethoxazole-trimethoprim [Bactrim DS] 800-160 mg tablet 1 tab PO BID 5 Days Qty: 10 0RF Follow Up/Referrals: Rose Mary Valle MD [Primary Care Provider, Family Practice] Stand Alone Forms: [employer] Info Instructions
[2025-07-07 20:47] LABS: Appearance Urine Clear (Clear)
[2025-07-07 21:08] LABS: Lactate* 0.6 mmol/L (0.5-1.9)
[2025-07-07 21:09] LABS: Hematocrit 36.8 % (33.0-51.0); Hemoglobin* 12.2 gm/dL (12.0-16.0); Immature Granulocytes Pct Auto 0.2 %; Mean Corpuscular HGB Conc 33 gm/dL (32-36); Mean Corpuscular Hemoglobin 29 pg (26-34); Mean Corpuscular Volume 89 fL (80-100); RDW Coefficient of Variation % 11.9 % (11.5-15.5); Red Blood Count 4.15 m/uL (4.00-5.20); White Blood Count* 11.08 K/uL (4.50-11.00)
[2025-07-07 21:15] LABS: Immature Granulocytes Abs Auto 0.00 K/uL (0.00-0.30); Lymphocytes Absolute Auto 2.60 K/uL (0.90-2.90)
[2025-07-07 21:15] LABS: Ur HCG Qualitative* Negative (Negative)
[2025-07-07 21:16] LABS: Slide Review Reflex No
[2025-07-07 21:24] LABS: Chloride* 103 mmol/L (96-114); Sodium* 136 mmol/L (135-149)
[2025-07-07 21:25] LABS: Potassium* 4.0 mmol/L (3.6-5.1)
[2025-07-07 21:28] LABS: Anion Gap 6 mEq/L (7-15); Blood Urea Nitrogen* 12 mg/dL (5-24); Calcium* 9.0 mg/dL (8.4-10.6); Carbon Dioxide* 27 mmol/L (20-32); Creatinine* 0.7 mg/dL (0.5-1.5); Est. Creatinine Clearance* 99.01; Estimated Glomerular Filt Rate 114 ml/min; Glucose* 105 mg/dL (60-115)
[2025-07-07] MEDS: cefTRIAXone 2 GM in 0.9 % SODIUM CHLORIDE Mini-bag 100 ML IVPB (21:35)
== END 2025-07-07 22:13 | disposition home or self-care (01) ==
PROVIDERS: Emergency Provider Family Medicine; PCP Family Medicine
DX: N39.0 Urinary tract infection, site not specified (principal)
CPT/HCPCS: 36415; 80048; 81001; 81003; 81025; 83605; 85025; 86140; 87086; 96365; 96375; 99284; J0696; J1885

== ENCOUNTER 2025-08-04 09:28 | Outpatient (CLI) | payer MEDICAID, SELFPAY | END 2025-08-04 09:29 | disposition home or self-care (01) | LOC: NFLDREF 08-12 01:54 | PROVIDERS: PCP Family Medicine; Referring Provider Family Medicine; Visit Provider Physician Assistant Surgical | DX: R30.0 Dysuria (principal); N30.90 Cystitis, unspecified without hematuria; R19.7 Diarrhea, unspecified; N30.00 Acute cystitis without hematuria | CPT/HCPCS: 87086 ==

== ENCOUNTER 2025-08-08 22:01 | Emergency (ER) | payer MEDICAID, SELFPAY ==
--- OUTSIDE RECORDS SUMMARY | 2025-08-08 22:03 | XMS_ITS | Clinical Summary ---
Author Organization [employer] Address [address] [place] [address] Care Team Providers Care Life Cycle Assessment Analyst Name Role Phone Rose Mary Valle MD Primary Care Provider Allergies No known active allergies Medications ondansetron (ZOFRAN ODT) 4 mg disintegrating tabletIndications: Nausea and vomiting, unspecified vomiting type Place 1 Tablet (4 mg) on the tongue every 8 hours if needed for Nausea/Vomitin g. 30 Tablet 07/09/20 25 Active Additional Information Patient not taking.Reported on 08/06/2025 polyethylene glycoL (MIRALAX) 17 gram/scoop powderIndications: Constipation, acute Mix 1 scoop (17 g) in liquid then take by mouth two times daily. 510 g 3 07/15/20 25 Active Additional Information Patient not taking.Reported on 07/27/2025 trimethoprim-sulfa methoxazole 160-800 mg tab Take 1 Tablet by mouth two times daily. 08/04/20 25 Active cephalexin 500 mg capsule Take 500 mg by mouth three times daily. 07/08/20 25 025 Discontinu ed(*Med complete/R egimen complete/L evel of care change) polyethylene glycol-electrolyte (Golytely) 236-22.74-6.74 -5.86 gram suspensionIndicati ons:Screen for colon cancer Take 4,000 mL by mouth one time for 1 dose. 4000 mL 07/12/20 25 025 Active Problems Problem Noted Date Diagnosed Date [...] 0 1 # Outcome Date GA Lbr Elile/2nd Weight Sex Delivery Anes PTL Lv 5 Current 4 Term 09/09/18 39w1d 3.01 kg (6 lb 10 oz) F Vag NONE N RENATO Name: Nirmala 3 Term 02/19/15 39w1d 3.01 kg (6 [...] No episode was linked to this visit. MELANIE Bradford.....02/21/2018 2:47 PM Supervision of other normal 07/14/2014 04/08/2015 Overview (02/10/2015): Flu vaccine 09/03/2014 Marginal placenta previa on 20 week ultrasound, 6 cm from os on 28 week ultrasound TDaP 12/06/2014 GBS negative. Supervision of other normal 03/10/2013 10/21/2013 Overview (08/28/2013): It's a girl! TDaP 06/09/13 GBS negative Flu Vaccine 08/28/2013 HEMOGLOBIN (g/dL) Date Value 08/11/2013 12.0 Encounters Date Type Department Care Team Description 08/06/2025 9:30 AM CDT Orders Only [address] [address] Lab, [place] [facility] 08/06/2025 8:35 AM CDT Office Visit [facility] [address] [place] [address] Kiesha Robles PA Abdominal Pain (started saturday as diarrhea, how having urinary sx causing lower abdominal pain. Went to 2 days ago, was found to have UTI. ) 08/06/2025 Travel 08/05/2025 12:10 PM CDT Telemedicine [facility] [address] [place] [phone] Sonali Abernathy, NILA Error-please disregard (E-Visit inappropriate) 08/05/2025 Travel 07/28/2025 1:45 PM CDT Ancillary Procedure [facility] [address] [place] [address] 07/27/2025 1:00 PM CDT Office Visit [facility] [address] [place] [address] Wilma Rosas MD Consult (Adenopathy referred by Dr. More) 07/27/2025 Travel 07/22/2025 Travel 07/21/2025 10:05 AM CDT Anesthesia Event [facility] [address] [place] [address] Yoana Peguero, Larry Cabrera CRNA 07/21/2025 9:56 AM CDT - 07/21/2025 10:36 AM CDT Surgery [facility] [address] [place] [address] Alfa Bauman MD COLONOSCOPY 07/21/2025 8:10 AM CDT - 07/21/2025 11:40 AM CDT Hospital Encounter [facility] [address] [place] [address] Alfa Bauman MD Discharge Disposition: Home Self Care 07/21/2025 Travel 07/20/[address] [phone] Alfa Bauman MD instructions 07/20/2025 Telephone [facility] [address] [place] [address] Margaret More MD Referral 07/15/2025 2:00 PM CDT Office Visit [facility] [address] [place] [address] Margaret More MD Follow Up (UTI) 07/15/2025 Travel 07/12/2025 Telephone [facility] [address] [place] [address] Rose Mary Valle MD Results 07/09/2025 2:25 PM CDT Office Visit [facility] [address] [place] [address] Margaret More MD Abdominal Pain (Had CT, x5 days, Frequent Urination, Bladder infection , Nausea, Back pain ) 07/09/2025 1:00 PM CDT Ancillary Procedure [facility] [address] [place] [address] 07/09/2025 Refill [facility] [address] [place] [address] Alfa Bauman MD Need Meds 07/09/2025 Travel 07/09/2025 Telephone [facility] [address] [place] [address] Rose Mary Valle MD Need Meds 07/07/2025 Orders Only [facility] Scanner 1 scan: (1-Ord) [facility], MULTIPLE LAB TESTS RESULTS, 07/07/2025 06/16/2025 1:25 PM CDT Office Visit [facility] [address] [place] [address] Siddhartha Garrido, DO Ear Problem (Right Ear feels plugged. Has felt like that for two week now and hears ringing. 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 Gender Identity Not on file Sexual Orientation Not on file Obstetrics History Para Term AB IAB SAB Ectopic Multiple Livin g Live Births 5 5 5 5 2 Date Outcome GA Total Labor Labor/2nd/3rd Weight Sex Type Anes PTL Renato A1 [...] N Livin g Silvestre Tori Complications:None Delivery Location:[facility] 2021 Term 38w 3d 3.2 kg (7 lb 1 oz) F Vag-S pont Livin g Last Filed Vital Signs Vital Sign Reading Time Taken Comments Blood Pressure 110/74 08/06/2025 8:37 AM CDT Pulse 83 08/06/2025 8:37 AM CDT Temperature 36.8 C (98.3 F) 08/06/2025 8:37 AM CDT Respiratory Rate 16 07/21/2025 11:00 AM CDT Oxygen Saturation 97% 08/06/2025 8:37 AM CDT Inhaled Oxygen Concentration - - Weight 73 kg (161 lb) 08/06/2025 8:37 AM CDT Height 167.6 cm (5' 6) 05/03/2025 8:49 AM CDT Body Mass Index 25.99 05/03/2025 8:49 AM CDT Plan of Treatment Upcoming Encounters Date Type Department Care Team (Late st Contact Info) Description 08/10/2025 4:30 PM CDT Office Visit [facility] [address] [place] [address] Wilma Rosas MD [address] [place] [address] Health Maintenance Due Date Last Done Comments HPV series for age 9-45 (1 - 3-dose SCDM series) 2014 Hepatitis B series for 19+ (2 of 3 - 19+ 3-dose series) 05/31/2025 05/03/2025 COVID-19 vaccine series ( - 2023- season) 2025 Influenza Vaccine (#1) 2025 9, 08/08/2017, 09/03/2014, Additional history exists BMI (ht and wt on same day) for age 18+ 05/03/2026 05/03/2025, 08/19/2024, 04/01/2024, Additional history exists Depression screening for age 12+ 05/03/2026 05/03/2025, 03/05/2024, 03/02/2024, Additional history exists Pap test for age 21-65 03/02/2029 , 03/02/2024, 07/27/2020, Additional history exists Tetanus booster 12/11/2031 12/11/2021, 05/27, 12/06/2014, Additional history exists RSV vaccine for adults or (1 - 1-dose 75+ series) 2062 HIV for age 15-65 Completed 08/03/2021, , 07/05/2014, Additional history exists Hepatitis C screening for age 18-79 Completed 01/23/2023 Pneumococcal series for age 6-49 Aged Out No longer eligible based on patient's age to complete this topic Procedures Procedure Name Priority Date/Time Associated Diagnosis Comments STOOL PATHOGEN MULTIPLEX PCR PANEL Routine 08/06/2025 9:25 AM CDT Acute diarrhea US ABDOMEN LIMITED RUQ Routine 2:13 PM CDT Abdominal pain, RUQ (right upper quadrant) COLONOSCOPY 07/21/2025 10:05 AM CDT Right lower quadrant abdominal pain Adenopathy COLONOSCOPY 07/21/2025 9:59 AM CDT URINE Preop 07/21/2025 8:35 AM CDT C-REACTIVE PROTEIN Routine 07/09/2025 3: 52 PM CDT Abdominal pain, RLQ (right lower quadrant) Adenopathy SEDIMENTATION RATE Routine 07/09/2025 3: 52 PM CDT Abdominal pain, RLQ (right lower quadrant) Adenopathy RED CELL MORPHOLOGY STAT 07/09/2025 3 :51 PM CDT Abdominal pain, RLQ (right lower quadrant) Adenopathy PLATELET ESTIMATE STAT 07/09/2025 3:5 1 PM CDT Abdominal pain, RLQ (right lower quadrant) Adenopathy MANUAL DIFFERENTIAL STAT 07/09/2025 3 :51 PM CDT Abdominal pain, RLQ (right lower quadrant) Adenopathy CBC WITH AUTO DIFFERENTIAL STAT 07/09/2025 3:51 PM CDT Abdominal pain, RLQ (right lower quadrant) Adenopathy CBC WITH AUTO DIFFERENTIAL STAT 07/09/2025 3:51 PM CDT Abdominal pain, RLQ (right lower quadrant) Adenopathy URINALYSIS MACROSCOPIC - [facility] ONLY POC DIP ([facility]) Routine 07/09/2025 3:08 PM CDT Complicated UTI (urinary tract infection) URINALYSIS MICROSCOPIC Routine 2:50 PM CDT Complicated UTI (urinary tract infection) URINE CULTURE Routine 07/09/2025 2:50 PM CDT Complicated UTI (urinary tract infection) CT ABDOMEN PELVIS STONE PROTOCOL WO STAT 07/09/2025 2:22 PM CDT Complicated UTI (urinary tract infection) Flank pain 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 THIN PREP PAP SCREEN IMAGED Routine 03/02/2024 1:30 PM CDT Cervical cancer screening LC HCV ANTIBODY RFX TO QUANT PCR Routine 01/23/2023 1:45 PM FRANCHISE MANAGER Need for hepatitis C screening test ANTI HIV 1/2 Routine 08/03/2021 12:06 PM CDT Supervision of other normal (HC) from Last 3 Months or Most Recently Relevant to Health Maintenance Results * STOOL PATHOGEN MULTIPLEX PCR PANEL [[id number]] (08/06/2025 9:25 AM CDT) Campylobacter NOT Detected NOT Detected 08/07/2025 4:08 PM CDT [facility] Salmonella NOT Detected NOT Detected 08/07/2025 4:08 PM CDT [facility] Shigella NOT Detected NOT Detected 08/07/2025 4:08 PM CDT [facility] Vibrio NOT Detected NOT Detected 08/07/2025 4:08 PM CDT [facility] Yersinia Enterocolitica NOT Detected NOT Detected 08/07/2025 4:08 PM CDT [facility] Shiga Toxin 1 NOT Detected NOT Detected 08/07/2025 4:[address] [facility] Shiga Toxin 2 NOT Detected NOT Detected 08/07/2025 4:08 PM CDT [facility] Norovirus NOT Detected NOT Detected 08/07/2025 4:08 PM CDT [facility] Rotavirus NOT Detected NOT Detected 08/07/2025 4:08 PM CDT [facility] Stool STOOL SPECIMEN / Unknown Non-Blood / Unknown 08/06/2025 9:25 AM CDT 08/06/2025 9:35 AM CDT [facility] - 08/07/2025 4:08 PM CDT This test is a Culture Independent Diagnostic Test (CIDT) therefore isolates are not available for susceptibility testing. Antibiotic treatment is often contraindicated and may be detrimental in cases of enteric infections, thus routine susceptibility testing is not recommended. Kiesha COLLIER MICROBIOLOGY Final Result [facility] [address] [place] [address], [place] * US ABDOMEN LIMITED RUQ (07/28/2025 2:13 PM CDT) Anatomical Region Laterality Modality Abdomen, LIVER Ultrasound 07/28/2025 3:01 PM CDT Impressions 07/28/2025 3:01 PM CDT Normal right upper quadrant ultrasound. Dictated by Vlad Napier MD @ 07/28/2025 3:01:42 PM (Electronically Signed) Narrative 07/28/2025 3:01 PM CDT For Patients: As a result of the Cures Act, medical imaging exams and procedure reports are released immediately into your electronic medical record. You may view this report before your referring provider. If you have questions, please contact your health care provider. INDICATION: Abdominal pain, RUQ (right upper quadrant) COMPARISON: CT 07/09/2025, ultrasound 02/08/2021 TECHNIQUE: Real time shaw scale imaging and color Doppler analysis was performed of the right upper quadrant. FINDINGS: The patient`s liver is of normal size and has uniform echogenicity. There is a normal appearance of the hepatic IVC and proximal abdominal aorta. There is no evidence of ascites. The gallbladder is of normal size and there is no evidence of intraluminal stones or sludge. The gallbladder wall measures 2 mm in thickness. The common bile duct is of normal size and measures 3 mm in diameter at the level of the yareli hepatis. The visualized pancreas appears normal. There is no evidence of a stone or hydronephrosis within the right kidney. The right kidney measures 13.1 cm in length. Procedure Note Vlad Napier MD - 07/28/2025 For Patients: As a result of the Cures Act, medical imagingexams and procedure reports are released immediately into your electronicmedical record. You may view this report before your referring provider.If you have questions, please contact your health care provider. INDICATION: Abdominal pain, RUQ (right upper quadrant) COMPARISON: CT 07/09/2025, ultrasound 02/08/2021 TECHNIQUE: Real time shaw scale imaging and color Doppler analysis was performed ofthe right upper quadrant. FINDINGS: The patient`s liver is of normal size and has uniform echogenicity. Thereis a normal appearance of the hepatic IVC and proximal abdominal aorta.There is no evidence of ascites. The gallbladder is of normal size andthere is no evidence of intraluminal stones or sludge. The gallbladderwall measures 2 mm in thickness. The common bile duct is of normal sizeand measures 3 mm in diameter at the level of the yareli hepatis. Thevisualized pancreas appears normal. There is no evidence of a stone orhydronephrosis within the right kidney. The right kidney measures 13.1 cmin length. IMPRESSION: Normal right upper quadrant ultrasound. Dictated by Vlad Napier MD @ 07/28/2025 3:01:42 PM (Electronically Signed) us Margaret More MD Final Resul t * COLONOSCOPY (07/21/2025 9:59 AM CDT) 07/21/2025 9:59 AM CDT Narrative Transcriptions Alfa Bauman MD - 07/21/2025 11:13 AM CDT Patient Name: Brittany Prince Procedure Date: 07/21/2025 Gender: Female Date of : 1985 Admit Type: Ambulatory Procedure: Colonoscopy Proceduralist: Alfa Bauman MD [facility] MD: Margaret More Indications/Pre-Op Diagnosis: Abdominal pain Medications: Propofol per Anesthesia Procedure Description: The patient had risks, benefits and alternatives explained to andgave informed consent. The patient had a stable cardiopulmonary status and judged an adequate candidate for conscious sedation. The endoscope [id number] was passed through the anus and advanced to the terminal ileum. The colonoscopy was performed without difficulty. The patient tolerated the procedure well. The quality ofthe bowel preparation was good. The terminal ileum, ileocecal valve, appendiceal orifice, and rectum were photographed. Complications: No immediate complications. Estimated Blood Loss & Specimen: Estimated blood loss: none. Findings: The perianal and digital rectal examinations were normal. The colon (entire examined portion) appeared normal. The terminal ileum appeared normal. Impressions/Post-Op Diagnosis: - The entire examined colon is normal. - The examined portion of the ileum was normal. - No specimens collected. Recommendation: - Discharge patient to home. - Resume previous diet. - Continue present medications. - Repeat colonoscopy in 10 years for screening purposes. Alfa Bauman MD 07/21/2025 11:13:19 AM Note Initiated On: 07/21/2025 9:59 AM Alfa Bauman MD PROCEDURE ORD Final Resu lt * Urine (07/21/2025 8:35 AM CDT) ,URIN E Negative Negative 07/21/2025 8:42 AM CDT [facility] Urine URINE SPECIMEN / Unknown Non-Blood / Unknown 07/21/2025 8:35 AM CDT 07/21/2025 8:38 AM CDT Margi Florecita Frankenfield PA URINE Fin al Result Performing Organization Address City/[facility]/ZIP Co de Phone Number [facility] [address] [place] [address] * SEDIMENTATION RATE (07/09/2025 3:52 PM CDT) Pathologist [facility] SED RATE BY MODIFIED CHIRAGERGREN 6 < OR = 20 mm/h [facility] Blood BLOOD SPECIMEN / Unknown 07/09/2025 3:52 PM CDT 07/09/2025 3:53 PM CDT us Margaret More MD HEMATOLOGY Final Resul t Performing Organization Address [facility] Co de Phone Number [facility] [address] [place] [address], [place] [phone] [employer] [facility] [address] * C-REACTIVE PROTEIN (07/09/2025 3:52 PM CDT) C-REACTIVE PROTEIN (MG/L) 5.3 <8.0 mg/L [facility] Blood BLOOD SPECIMEN / Unknown 07/09/2025 3:52 PM CDT 07/09/2025 3:53 PM CDT Margaret More MD CHEMISTRY Final Resul t Performing Organization Address [facility] Co de Phone Number [facility] [address] [place] [address], [place] [phone] [facility] [address] [place] [phone] * CBC WITH AUTO DIFFERENTIAL (07/09/2025 3:51 PM CDT) WHITE BLOOD COUNT 9.7 4.5 - 11.0 thou/cu mm 07/09/2025 6:55 PM CDT [facility] RED BLOOD COUNT 4.25 4.00 - 5.20 mil/cu mm 07/09/2025 6:55 PM CDT [facility] HEMOGLOBIN 12.6 12.0 - 16.0 g/dL 07/09/2025 6:55 PM T [facility] HEMATOCRIT 37.9 33.0 - 51.0 % 07/09/2025 6:55 PM T [facility] MCV 89 80 - 100 fL 07/09/2025 6:55 PM CDT [facility] MCH 29.6 26.0 - 34.0 pg 07/09/2025 6:55 PM T [facility] MCHC 33.2 32.0 - 36.0 g/dL 07/09/2025 6:55 PM T [facility] RDW 11.9 11.5 - 15.5 % 07/09/2025 6:55 PM T [facility] PLATELET COUNT 283 140 - 440 thou/cu mm 07/09/2025 6:55 PM T [facility] MPV 10.3 6.5 - 11.0 fL 07/09/2025 6:55 PM T [facility] Blood BLOOD SPECIMEN / Unknown [facility] / Unknown 07/09/2025 3:51 PM CDT 07/09/2025 3:51 PM CDT us Margaret More MD HEMATOLOGY Final Resul t [facility] [address] [place] [id number] * RED CELL MORPHOLOGY (07/09/2025 3:51 PM CDT) RBC COMMENT RBC morphology appears normal RBC morphology appears normal, RBC morphology within normal limits for newborns. 07/09/2025 6:55 PM CDT [facility] Blood BLOOD SPECIMEN / Unknown [facility] / Unknown 07/09/2025 3:51 PM CDT 07/09/2025 3:51 PM CDT us Margaret More MD HEMATOLOGY Final Resul t [facility] [address] [place] [address] * PLATELET ESTIMATE (07/09/2025 3:51 PM CDT) PLATELET ESTIMATE Adequate Adequate, No estimate 07/09/2025 6:55 PM CDT [facility] Blood BLOOD SPECIMEN / Unknown [facility] / Unknown 07/09/2025 3:51 PM CDT 07/09/2025 3:51 PM CDT us Margaret More MD HEMATOLOGY Final Resul t Performing Organization Address City/[facility]/ZIP Co de Phone Number [facility] [address] [place] [address] * (ABNORMAL) MANUAL DIFFERENTIAL (07/09/2025 3:51 PM CDT) Pathologist [facility] % NEUTROPHILS 59.0 % 07/09/2025 6:55 PM [facility] % LYMPHOCYTES 32.0 % 07/09/2025 6:55 PM [facility] % MONOCYTES 7.0 % 07/09/2025 6:55 PM [facility] % EOSINOPHILS 2.0 % 07/09/2025 6:55 PM [facility] % BASOPHILS 0.0 % 07/09/2025 6:55 PM [facility] NEUTROPHILS ABSOLUTE 5.7 1.7 - 7.0 thou/cu mm 07/09/2025 6:55 PM T [facility] LYMPHOCYTES ABSOLUTE 3.1(H) 0.9 - 2.9 thou/cu mm 07/09/2025 6:55 PM [facility] MONOCYTES ABSOLUTE 0.7 <0.9 thou/cu mm 07/09/2025 6:55 PM [facility] EOSINOPHILS ABSOLUTE 0.2 <0.5 thou/cu mm 07/09/2025 6:55 PM [facility] BASOPHILS ABSOLUTE 0.0 <0.3 thou/cu mm 07/09/2025 6:55 PM CDT [facility] Blood BLOOD SPECIMEN / Unknown [facility] / Unknown 07/09/2025 3:51 PM CDT 07/09/2025 3:51 PM CDT us Margaret More MD HEMATOLOGY Final Resul t [facility] [address] [place] [address] * (ABNORMAL) POCT Urinalysis Dipstick Only [[id number]] (07/09/2025 3:08 PM CDT) PH 6.5 5.0 - 8.0 [facility] SPECIFIC GRAVITY 1.010 1.001 - 1.035 [facility] GLUCOSE NEGATIVE NEGATIVE [facility] BILIRUBIN NEGATIVE NEGATIVE [facility] KETONES NEGATIVE NEGATIVE [facility] OCCULT BLOOD TRACE(A) NEGATIVE [facility] PROTEIN NEGATIVE NEGATIVE [facility] NITRITE NEGATIVE NEGATIVE [facility] LEUKOCYTE ESTERASE NEGATIVE NEGATIVE [facility] Urine URINE SPECIMEN / Unknown 07/09/2025 3:08 PM CDT 07/09/2025 3:09 PM CDT us Margaret More MD URINE Final Resul t [facility] [address] [place] [address], [facility] [address] [place] [address] * URINALYSIS MICROSCOPIC [[id number]] - routine (07/09/2025 2:50 PM CDT) RBC 0-2 0-2, None Seen /HPF 07/09/2025 10:51 PM CDT [facility] WBC 0-2 0-2, 3-5, None Seen /HPF 07/09/2025 10:51 PM CDT [facility] BACTERIA None Seen None Seen, Rare, Few Bacteria/ HPF 07/09/2025 10:51 PM CDT [facility] EPITHELIAL CELLS None Seen None Seen, Few Epi/HPF 07/09/2025 10:51 PM CDT [facility] HYALINE CASTS 0-2 0-2, 3-5 /LPF 07/09/2025 10:51 PM CDT [facility] Urine URINE SPECIMEN / Unknown Non-Blood / Unknown 07/09/2025 2:50 PM CDT 07/09/2025 3:08 PM CDT Margaret More MD URINE Final Resul t Performing Organization Address City/[facility]/ZIP Co de Phone Number [facility] [address] [address], [place] * URINE CULTURE [[id number]] (07/09/2025 2:50 PM CDT) CULTURE No growth (<1,000 CFU/mL) 07/11/2025 2:55 PM CDT [facility] Urine URINE SPECIMEN / Unknown Non-Blood / Unknown 07/09/2025 2:50 PM CDT 07/09/2025 3:08 PM CDT us Margaret More MD MICROBIOLOGY Final Resul t [facility] [address] [place] [address], [place] * CT ABDOMEN PELVIS STONE PROTOCOL WO (07/09/2025 2:22 PM CDT) Anatomical Region Laterality Modality Abdomen, Pelvis, AORTA, LIVER, SPLEEN Computed Tomography 07/09/2025 2:51 PM CDT Impressions 07/09/2025 2:51 PM CDT : 1. Punctate nonobstructing left interpolar calculus. No ureteral calculi or hydronephrosis. 2. New borderline enlarged mesorectal lymph node, consider correlation with colonoscopy if not recently performed. 3. Similar prominent appendix with multiple enlarged right lower quadrant mesenteric lymph nodes, that may be reactive. No evidence of appendicitis 4. New left lower lobe partially imaged 4 mm solid subpleural nodule. Depending on patient risk factors, follow-up CT in 12 months can be performed to assess stability Please note that all CT scans at this facility use dose modulation, iterative reconstruction, and/or weight-based dosing when appropriate to reduce radiation dose to as low as reasonably achievable. Dictated by Kassandra Silverio MD @ 07/09/2025 2:51:11 PM (Electronically Signed) Narrative 07/09/2025 2:51 PM CDT For Patients: As a result of the Cures Act, medical imaging exams and procedure reports are released immediately into your electronic medical record. You may view this report before your referring provider. If you have questions, please contact your health care provider. INDICATION: Flank pain, kidney stone suspected. TECHNIQUE: CT abdomen and pelvis without contrast, stone protocol. COMPARISON: CT abdomen and pelvis 12/24/2022 and 06/11/2022 FINDINGS: Kidney/ureters: Kidneys are normal in caliber. Duplicated right renal collecting system. Punctate left interpolar calculus. No ureteral calculi. No hydronephrosis. No sign of perinephric inflammation. Ureters are normal in caliber. Liver/gallbladder/bile ducts: The liver is normal in size, shape and attenuation. Gallbladder is normal without visualized stones or inflammation. No biliary dilatation. Spleen/pancreas/adrenal glands: The spleen, adrenal glands and pancreas are within normal limits. GI tract: The bowel is unremarkable. Prominent top-normal caliber appendix measuring 6 mm, similar prior. No periappendiceal stranding or fluid collection to suggest acute inflammation. Abdominal wall/omentum/peritoneum: No free air or significant free fluid. No mass or inflammation. Lymph nodes: New top-normal left mesorectal lymph node measuring 4 mm.Similar prominent right lower quadrant mesenteric lymph nodes measuring up to 1 cm. Pelvis: Unremarkable pelvis. Lower chest: New left lower lobe 4 mm solid subpleural nodule and a stable 3 mm left lower lobe nodule. Procedure Note Kassandra Silverio MD - 07/09/2025 For Patients: As a result of the 21st Century Cures Act, medical imagingexams and procedure reports are released immediately into your electronicmedical record. You may view this report before your referring provider.If you have questions, please contact your health care provider. INDICATION: Flank pain, kidney stone suspected. TECHNIQUE: CT abdomen and pelvis without contrast, stone protocol. COMPARISON: CT abdomen and pelvis 12/24/2022 and 06/11/2022 FINDINGS: Kidney/ureters: Kidneys are normal in caliber. Duplicated right renalcollecting system. Punctate left interpolar calculus. No ureteral calculi.No hydronephrosis. No sign of perinephric inflammation. Ureters are normalin caliber. Liver/gallbladder/bile ducts: The liver is normal in size, shape andattenuation. Gallbladder is normal without visualized stones orinflammation. No biliary dilatation. Spleen/pancreas/adrenal glands: The spleen, adrenal glands and pancreasare within normal limits. GI tract: The bowel is unremarkable. Prominent top-normal caliberappendix measuring 6 mm, similar prior. No periappendiceal stranding orfluid collection to suggest acute inflammation. Abdominal wall/omentum/peritoneum: No free air or significant free fluid.No mass or inflammation. Lymph nodes: New top-normal left mesorectal lymph node measuring 4mm.Similar prominent right lower quadrant mesenteric lymph nodes measuringup to 1 cm. Pelvis: Unremarkable pelvis. Lower chest: New left lower lobe 4 mm solid subpleural nodule and a stable3 mm left lower lobe nodule. IMPRESSION: : 1. Punctate nonobstructing left interpolar calculus. No ureteral calculior hydronephrosis. 2. New borderline enlarged mesorectal lymph node, consider correlationwith colonoscopy if not recently performed. 3. Similar prominent appendix with multiple enlarged right lower quadrantmesenteric lymph nodes, that may be reactive. No evidence of appendicitis 4. New left lower lobe partially imaged 4 mm solid subpleural nodule.Depending on patient risk factors, follow-up CT in 12 months can beperformed to assess stability Please note that all CT scans at this facility use dose modulation,iterative reconstruction, and/or weight-based dosing when appropriate toreduce radiation dose to as low as reasonably achievable. Dictated by Kassandra Silverio MD @ 07/09/2025 2:51:11 PM (Electronically Signed) us Margaret More MD CT Final Resul t * SCAN-LABORATORY REPORT (07/07/2025 12:00 AM CDT) us Scanner OTHER Final Result * AUTOMOBILE BODY REPAIR[employer] THIN PREP PAP SCREEN IMAGED (03/02/2024 1:30 PM CDT) Case Report Gynecologic Cytology Report Case: [id number] Authorizing Provider: Rose Mary Valle MD Collected: 03/02/2024 1330 Ordering Location: [facility] Received: 03/02/2024 1412 Clinic First Screen: Nicolas Jacob Specimen: AUTOMOBILE BODY REPAIRER ThinPrep Vial Screening, Cervical 03/11/2024 12:58 PM CDT [facility] INTERPRETATION/ RESULT NEGATIVE FOR INTRAEPITHELIAL LESION OR MALIGNANCY (NIL) (none) 03/11/2024 12:[address] [facility] [employer] ENTRAL LABORATORY at 1258 CDT SPECIMEN ADEQUACY Satisfactory for evaluation No endocervical component seen Scant cellularity 03/11/2024 12:58 PM CDT [facility] HPV REQUEST HPV and PAP 03/11/2024 12:[address] [facility] [employer] ENTRAL LABORATORY Date of LMP 02/20/2024 03/11/2024 12:58 PM CDT [facility] [employer] ENTRAL LABORATORY Last Pap Date 07/27/20 03/11/2024 12:[address] [facility] [employer] ENTRAL LABORATORY Last Pap Result NIL 12:58 PM CDT [facility] Abnormal Pap or [place] Bx in last 5 years No 03/11/2024 12:[address] [facility] [employer] ENTRAL LABORATORY Menstrual Status Regular Periods 03/11/2024 12:58 PM CDT [facility] [employer] ENTRAL LABORATORY [place] Bx Done Today No 03/11/2024 12:[address] [facility] [employer] ENTRAL LABORATORY Additional Information None given 03/11/2024 12:58 PM CDT [facility]KY LABORATORY Comment: Cytology is screened at [facility] - [address], [place] [address] and [facility] - [address] [place] [address], [place] [address] and [facility] - [address] [place] [address] Interpreted at [facility] - [address] [place] [address], [place] [address] Automated Review Successful 03/11/2024 12:58 PM CDT [facility] ENTRKY LABORATORY Comment:Specimen processed s uccessfully by automated decision science analyst device, [employer] Imaging System, [employer] ANCILLARY TESTING AUTOMOBILE BODY REPAIRER HPV Ordered, Please see separate report 03/11/2024 12:58 PM CDT [facility] Note The pap test is a screening technique, not a diagnostic procedure. It is used primarily to screen for squamous cancers and precursor lesions. Published studies have shown that it is subject to both false negative and false positive results. The pap test should not be used as the sole means to diagnose or exclude pre-malignant and malignant lesions. 03/11/2024 12:58 PM CDT [facility] Other (Cervical) Non-Blood / Unknown 03/02/2024 1:30 PM CDT 03/02/2024 2:12 PM CDT Rose Mary Valle MD PATHOLOGY/CYTOLOGY Mady mejia Result [facility] [address] [place] [address], [place] * LC HCV ANTIBODY RFX TO QUANT PCR (01/23/2023 1:45 PM FRANCHISE MANAGER) HCV Ab Non Reactive Non Reactive 01/25/2023 10:07 PM FRANCHISE MANAGER [facility] ([facility]) Blood BLOOD SPECIMEN / Unknown Venipuncture / Unknown 01/23/2023 1:45 PM FRANCHISE MANAGER 01/23/2023 1:50 PM FRANCHISE MANAGER Narrative [facility] - 01/25/2023 10:07 PM FRANCHISE MANAGER Performed at: - [address] [id number] Radiology Rn: Bogdan Douglas MD, Phone: [phone] Rose Mary Valle MD LABORATORY Final R esult [facility] ([facility]) [facility] [place] [address], * ANTI HIV 1/2 (08/03/2021 12:06 PM CDT) Pathologist [facility] HIV-1/HIV-2 ANTIBODY Non-Reacti ve Non-Reacti ve 08/03/2021 6:[address] [facility] LABORATORY-HEATHER TRAL LABORATORY Comment:HIV-1 p24 and HIV-1/ HIV-2 Ab not detected. Blood BLOOD SPECIMEN / Unknown Venipuncture / Unknown 08/03/2021 12:06 PM CDT 08/03/2021 12:07 PM CDT Rose Mary Valle MD SEND OUTS Final R esult [facility] LABORATORY-CENTRAL LABORATORY [address] [place] [address], from Last 3 Months or Most Recently Relevant to Health Maintenance Additional Health Concerns Infection Onset Date Last Indicated ESBL 09/29/2019 09/29/2019 Rule-Out C.diff 08/06/2025 08/06/2025 Insurance [place] Advance Directives * Full Code (Latest Code Status on File) Date Activated Date Inactivated Comments 07/21/2025 8:24 AM 07/21/2025 1:57 PM Question Answer Comments Code Status Discussion: Discussed Care Teams Life Cycle Assessment Analyst Relationship Specialty Start Date End Date Rose Mary Valle MD [address] [address] PCP - General Family Practice 08/06/25
[2025-08-08 22:10] VITALS: BP 116/83; PULSE 78; RESP 16; TEMP 36.7; O2SAT 98
[2025-08-08 22:16] LABS: Appearance Urine Clear (Clear)
--- NOTE | 2025-08-08 22:28 | ED_ITS ---
HPI - General Adult General Chief complaint: Abdominal Pain Stated complaint: Lower abdominal pain Time Seen by Provider: 08/08/25 22:24 History of Present Illness HPI narrative: saturday lower abd pain, clinic UTI, on abx. saturday called and changed her abx due to culture growing new abx. taking tylenol, abd pain hasnt improved so she wants evaluation. 39-year-old woman presenting to the emergency department with complaint of return of dysuria and suprapubic pain radiating into the right lower abdomen. Seen 08/04/2025 and diagnosed with acute cystitis and initiated on Bactrim. E coli grew out which were resistant to Bactrim so looks like was switched to nitrofurantoin. In November of this year also with E coli in her urine which were pansensitive. Urine culture from 07/07/2025 was unremarkable. With this visit in last July she had had some diarrhea preceding the cystitis and then that had resolved. Dysuria had also improved but now returned as noted. She also had some radiating discomfort into her right thigh but that has also gone away. Intermittent pain in the right adnexal area that seems to be coming continuous from the suprapubic area. No fever. She has had some pain in her right flank area. She is also experiencing nausea. It sounds like in 2 days time will be getting a HIDA scan? She does endorse a history of kidney stones. She has not noted any hematuria most recently. Produces CT imaging from 07/09/2025 with impression show a left interpolar renal calculus, borderline enlarged perirectal lymph node, prominent appendix with multiple enlarged right lower quadrant mesenteric lymph nodes. No evidence of appendicitis. Thought that lymph nodes might be reactive. Also a left lower lobe 4 mm solid subpleural nodule. Sounds to be new that time. CT comparisons were May of 2020 to in November of [address] imaging in November 2024 showed mesenteric adenitis Related Data Previous Rx's ?Medication ?Instructions ?Recorded loperamide 2 mg capsule See Rx Instructions PO Q6H P RN 08/04/25 loose stool #30 caps nitrofurantoin 100 mg PO Q12H 5 days #10 ca ps 08/06/25 monohydrate/macrocrystals 100 mg capsule (Macrobid) hydrocodone 5 mg-acetaminophen 325 1 - 2 tab PO Q4-6H PRN pain #10 08/09/25 mg tablet tabs Allergies Allergy/AdvReac Type Severity Reaction Status Date / Time No Known Drug Allergies Allergy Verified 08/04/25 09:26 Review of Systems Status of ROS: Reports: 6 or more systems reviewed and unremarkable except as noted in History and below [facility] Social History Smoking Status: Never smoker Do you use any of these nicotine containing products: None Second hand tobacco smoke exposure: No How often do you have a drink containing alcohol: never How often do you have six or more drinks on one occasion: Never AUDIT-C Alcohol total score: 0 Non-prescribed substance use: denies use service: No Exam Narrative: Exam Narrative: Pleasant. NAD. Skin is warm and dry. No lesions appreciated. Sore to palpation in the suprapubic area and into the right lower abdomen, right adnexal area. No wall defect appreciated. Is a little tender to palpation over the inguinal ligament but more so above that area. She does not have worsening pain to resisted hip flexion or internal rotation of the hip. No reproducible flank pain. Abdomen is soft. Without peritoneal signs. Extremities are well perfused without edema. Const: Vital Signs, click to edit/add: Vital Signs - 24 hr 08/08/25 22:10 08/08/25 23:50 Temperature 98.1 F 98.1 F Pulse Rate [Pulse Oximeter] 78 Respiratory Rate 16 Blood Pressure [Ri ght Upper Arm] 116/83 Pulse Oximetry 98 Oxygen Delivery Me thod Room Air Documenting provider has reviewed patient's vital signs: yes Course Vital Signs Vital signs: Initial Vital Signs Temperature 98.1 F 08/08/25 22:10 Temperature Source Temporal Artery Scan 08/08/25 22:10 Pulse Rate 78 08/08/25 22:10 Respiratory Rate 16 08/08/25 22:10 Blood Pressure 116/83 08/08/25 22:10 Blood Pressure Mean 94 08/08/25 22:10 Blood Pressure Position Sitting 08/08/25 22:10 Pulse Oximetry 98 08/08/25 22:10 Oxygen Delivery Method Room Air 08/08/25 22:10 Vital Signs Temperature 98.1 F 08/08/25 22:10 Pulse Rate 78 08/08/25 22:10 Respiratory Rate 16 08/08/25 22:10 Blood Pressure 116/83 08/08/25 22:10 Pulse Oximetry 98 08/08/25 22:10 Oxygen Delivery Method Room Air 08/08/25 22:10 Temperature 98.1 F 08/09/25 00:45 Pulse Rate 74 08/09/25 00:45 Respiratory Rate 16 08/09/25 00:45 Blood Pressure 121/74 08/09/25 00:45 Pulse Oximetry 98 08/09/25 00:39 Oxygen Delivery Method Room Air 08/09/25 00:39 Medications Administered Medications: Discontinued Medications Generic Name Dose Route Start Last Admin Trade Name Kierra PRN Reason Stop Dose Admin Sodium Chloride 500 mls @ 500 mls/hr 08/08/25 22:41 08/08/25 23:45 0.9 % Sodium Chloride 500 Ml IV 08/08/25 23:40 Infused .Q1H ONE Infusion Ketorolac Tromethamine 30 mg 08/08/25 22:41 08/08/25 22:49 Ketorolac 30 Mg/Ml Inj IVP 08/08/25 22:42 30 mg ONCE ONE Administration Ondansetron HCl 4 mg 08/08/25 22:41 08/08/25 22:50 Ondansetron 2 Mg/Ml Inj IVP 08/08/25 22:42 4 mg ONCE ONE Administration Medical Decision Making MDM Narrative Medical decision making narrative: May be a experiencing radiating symptoms from cystitis. A septic or infectious. Would check urinalysis for evidence of infection. Pending this result might need to do further evaluation including CT imaging looking for ureteral stone given her history. May still have mesenteric adenitis. This might be an ovarian issue as well. Perhaps intermittent torsion but does not appear to be experiencing that level of discomfort. Pain is been with intermittent flares but still with baseline level of discomfort. This could suggest ureteral colic or intestinal colic. Diverticulitis? Unlikely to have vascular disruption. Initiated IV. Given Zofran and ketorolac. Urinalysis was clear. No evidence of inflammation or infection. Cbc and chemistries were unremarkable. No apparent STI concerns. Still could be ureteral stone or mesenteric adenitis. Worsening lymphadenopathy of other etiology. No concern of malignancy when last evaluated. CT scan of abdomen pelvis is requested. I do see a right-sided phlebolith. No inflammatory changes or swelling about the adnexa. See patient comes Radiology over-read as below INDICATION: SUPRAPUBIC PAIN, RT INGUINAL PAIN, HX OF KIDNEY STONES. TECHNIQUE: CT abdomen and pelvis without contrast. COMPARISON: CT abdomen and pelvis 12/18/2024. FINDINGS: Lower chest: Unremarkable. Liver: Normal in size and attenuation. No suspicious masses. Gallbladder and bile ducts: No stones or inflammation. No biliary dilatation. Pancreas: Unremarkable. No mass or inflammation. Spleen: Normal in size. No masses. Adrenal glands: Normal in size. No nodules. Kidneys: Normal in size. No suspicious masses, stones, or hydronephrosis. GI tract: Unremarkable. Normal in caliber. No sign of mass or inflammation. Normal appendix. Vasculature: Abdominal aorta is normal in caliber. Lymph nodes: No lymphadenopathy. Peritoneum/Abdominal Wall: Unremarkable. No free air or significant free fluid. Pelvis: Unremarkable. No pelvic masses. Bones: Unremarkable for age. IMPRESSION: Unremarkable CT of the abdomen and pelvis. No acute findings. No urolith or evidence of obstructive uropathy. Please note that all CT scans at this facility use dose modulation, iterative reconstruction, and/or weight-based dosing when appropriate to reduce radiation dose to as low as reasonably achievable. Dictated by Montez Kinsey MD @ 08/08/2025 11:17:23 PM No further events during time in the emergency department. Generally improved though discomfort still present. She does have upcoming evaluation for gallbladder. Pain is not been consistent with that here today in location. Sounds as though this might be a HIDA scan that is pending in a few days. See patient discharge plan for further discussion Continue to hydrate with water. Prescribing phenazopyridine for the burning you are experiencing with urination. Perhaps this will help with the pain in your right lower abdomen as well. Also from [facility] some Zofran for nausea. Sending in [place], and opiate, to your pharmacy as discussed. Can take up to 800 mg of ibuprofen or up to 1000 mg of acetaminophen per dose. Remember that each tablet of [place] contains 5 mg of hydrocodone and 325 mg of acetaminophen. Follow-up as planned on Saturday but would be seen for marked increase in pain in the right lower abdomen particularly accompanied by repeated vomiting, fever. Your labs and CT imaging were reassuring here today. It may be that an ultrasound of your pelvis would offer further information. Medical Records Medical records reviewed: Yes I reviewed the patient's medical records Lab Data Lab results reviewed: Yes I reviewed the patient's lab results Labs: Lab Results 08/08/25 08/08/25 Range/Units 22:10 22:45 WBC 7.66 (4.50-11.00) K/uL RBC 4.10 (4.00-5.20) m/uL Hgb 11.9 L (12.0-16.0) gm/dL Hct 35.9 (33.0-51.0) % MCV 88 (80-100) fL MCH 29 (26-34) pg MCHC 33 (32-36) gm/dL RDW Coeff of Patricio 11.7 (11.5-15.5) % Plt Count 242 (140-440) K/uL Neut % (Auto) 55.9 (42.0-72.0) % Lymph % (Auto) 33.7 (20-44) % Haines % (Auto) 8.0 (0.0-11.0) % Eos % (Auto) 1.6 (0.0-7.0) % Baso % (Auto) 0.7 (0.0-3.0) % Neut # (Auto) 4.29 (1.7-7.0) K/uL Lymph # (Auto) 2.58 (0.90-2.90) K/uL Haines # (Auto) 0.60 (0.00-0.90) K/UL Eos # (Auto) 0.12 (0.00-0.50) K/uL Baso # (Auto) 0.05 (0.00-0.30) K/uL Abs Immat Gran (auto) 0.01 (0.00-0.30) K/uL Imm/Tot Granulo (auto) 0.1 % Sodium 136 (135-149) mmol/L Potassium 3.9 (3.6-5.1) mmol/L Chloride 106 (96-114) mmol/L Carbon Dioxide 26 (20-32) mmol/L Anion Gap 4 L (7-15) mEq/L BUN 13 (5-24) mg/dL Creatinine 0.7 (0.5-1.5) mg/dL Estimated GFR 114 ml/min Glucose 109 (60-115) mg/dL Calcium 8.6 (8.4-10.6) mg/dL C-Reactive Protein 0.6 (0.5-1.0) mg/dL Urine Color Yellow (Yellow) Urine Appearance Clear (Clear) Urine pH 7.0 (5.0-8.5) Ur Specific Palmer 1.010 (1.000-1.030) Urine Protein Negative (Negative) Urine Glucose (UA) Negative (Negative) Urine Ketones Negative (Negative) Urine Blood Negative (Negative) Urine Nitrite Negative (Negative) Urine Bilirubin Negative (Negative) Urine Urobilinogen 0.2 (0.2-1.0) Ur Leukocyte Esterase Negative (Negative) Urine RBC 0-2 (0-2) Urine WBC 0-2 (0-5) Ur Squamous Epith Cells Few (None-Few) Urine Bacteria None (None) Discharge Plan Discharge Clinical Impression: Dysuria, Abdominal pain Patient Disposition: Home, Self-Care Condition: Improved Additional Instructions: Continue to hydrate with water. Prescribing phenazopyridine for the burning you are experiencing with urination. Perhaps this will help with the pain in your right lower abdomen as well. Also from [facility] some Zofran for nausea. Sending in [place], and opiate, to your pharmacy as discussed. Can take up to 800 mg of ibuprofen or up to 1000 mg of acetaminophen per dose. Remember that each tablet of [place] contains 5 mg of hydrocodone and 325 mg of acetaminophen. Follow-up as planned on Saturday but would be seen for marked increase in pain in the right lower abdomen particularly accompanied by repeated vomiting, fever. Your labs and CT imaging were reassuring here today. It may be that an ultrasound of your pelvis would offer further information. Contin?e hidrat?ndose con agua. Le recetar? fenazopiridina para el ardor al orinar. Quiz?s esto tambi?n le ayude con el dolor en la parte inferior derecha del abdomen. Tambi?n le trixie? Zofran de [facility] para las n?useas. Le enviar? [place] y opi?ceos a davis farmacia, mau se mencion?. Puede rubio hasta 800 mg de ibuprofeno o hasta 1000 mg de acetaminof?n por dosis. Recuerde que cada tableta de [place] contiene 5 mg de hidrocodona y 325 mg de acetaminof?n. La denise de seguimiento est? prevista para el jayy, lokesh se le revisar? por un aumento marcado del dolor en la parte inferior derecha del abdomen, especialmente acompa?ado de v?mitos repetidos y fiebre. Malathi an?lisis y la tomograf?a computarizada de hoy fueron tranquilizadores. Es posible que renan ecograf?a de pelvis ofrezca m?s informaci?n. Prescriptions: New hydrocodone-acetaminophen 5-325 mg tablet 1 - 2 tab PO Q4-6H PRN (Reason: pain) Qty: 10 0RF No Action loperamide 2 mg capsule See Rx Instructions PO Q6H MDD 16 mg/day (8 tablets) PRN (Reason: loose stool) Qty: 30 0RF Rx Instructions: 4 mg (2 caps) PO x1, then 2 mg (1 cap) PO x1 after each loose stool nitrofurantoin monohyd/m-cryst [Macrobid] 100 mg capsule 100 mg PO Q12H 5 Days Qty: 10 0RF Rx Instructions: must administer with a meal/food Follow Up/Referrals: Rose Mary Valle MD [Primary Care Provider, Family Practice] Stand Alone Forms: MyHealth Info Instructions
--- NOTE | 2025-08-08 22:41 | CRLHL7_ITS ---
For Patients: As a result of the Century Cures Act, medical imaging exams and procedure reports are released immediately into your electronic medical record. You may view this report before your referring provider. If you have questions, please contact your health care provider. INDICATION: SUPRAPUBIC PAIN, RT INGUINAL PAIN, HX OF KIDNEY STONES. TECHNIQUE: CT abdomen and pelvis without contrast. COMPARISON: CT abdomen and pelvis 12/18/2024. FINDINGS: Lower chest: Unremarkable. Liver: Normal in size and attenuation. No suspicious masses. Gallbladder and bile ducts: No stones or inflammation. No biliary dilatation. Pancreas: Unremarkable. No mass or inflammation. Spleen: Normal in size. No masses. Adrenal glands: Normal in size. No nodules. Kidneys: Normal in size. No suspicious masses, stones, or hydronephrosis. GI tract: Unremarkable. Normal in caliber. No sign of mass or inflammation. Normal appendix. Vasculature: Abdominal aorta is normal in caliber. Lymph nodes: No lymphadenopathy. Peritoneum/Abdominal Wall: Unremarkable. No free air or significant free fluid. Pelvis: Unremarkable. No pelvic masses. Bones: Unremarkable for age. IMPRESSION: Unremarkable CT of the abdomen and pelvis. No acute findings. No urolith or evidence of obstructive uropathy. Please note that all CT scans at this facility use dose modulation, iterative reconstruction, and/or weight-based dosing when appropriate to reduce radiation dose to as low as reasonably achievable. Dictated by Montez Kinsey MD @ 08/08/2025 11:17:23 PM (Electronically Signed)
[2025-08-08] MEDS: 0.9 % SODIUM CHLORIDE 500 ML 500 ML IV (22:49)
[2025-08-08] MEDS: ONDANSETRON 2 MG/ML inj 4 MG IVP (22:50)
[2025-08-08 22:57] LABS: Hematocrit* 35.9 % (33.0-51.0); Hemoglobin* 11.9 gm/dL (12.0-16.0); Immature Granulocytes Abs Auto 0.01 K/uL (0.00-0.30); Immature Granulocytes Pct Auto 0.1 %; Lymphocytes Absolute Auto 2.58 K/uL (0.90-2.90); Mean Corpuscular HGB Conc 33 gm/dL (32-36); Mean Corpuscular Hemoglobin 29 pg (26-34); Mean Corpuscular Volume 88 fL (80-100); RDW Coefficient of Variation % 11.7 % (11.5-15.5); Red Blood Count* 4.10 m/uL (4.00-5.20); White Blood Count* 7.66 K/uL (4.50-11.00)
[2025-08-08 23:01] LABS: Slide Review Reflex No
[2025-08-08 23:11] LABS: Chloride* 106 mmol/L (96-114); Potassium* 3.9 mmol/L (3.6-5.1); Sodium* 136 mmol/L (135-149)
[2025-08-08 23:15] LABS: Anion Gap 4 mEq/L (7-15); Blood Urea Nitrogen* 13 mg/dL (5-24); Calcium* 8.6 mg/dL (8.4-10.6); Carbon Dioxide* 26 mmol/L (20-32); Creatinine* 0.7 mg/dL (0.5-1.5); Estimated Glomerular Filt Rate 114 ml/min; Glucose* 109 mg/dL (60-115)
[2025-08-08 23:50] VITALS: TEMP 36.7
[2025-08-09 00:39] VITALS: BP 121/74; PULSE 74; RESP 16; TEMP 36.7; O2SAT 98
[2025-08-09 00:45] VITALS: BP 121/74; PULSE 74; RESP 16; TEMP 36.7
== END 2025-08-09 00:45 | disposition home or self-care (01) ==
PROVIDERS: Emergency Provider Family Medicine; PCP Family Medicine
DX: R10.31 Right lower quadrant pain (principal); R30.0 Dysuria
CPT/HCPCS: 36415; 74176; 80048; 81001; 85025; 86140; 96374; 96375; 99284; J1885; J2405; J7030

== ENCOUNTER 2025-08-10 12:10 | Outpatient (CLI) | payer MEDICAID, SELFPAY ==
--- NOTE | 2025-08-10 12:00 | CRLHL7_ITS ---
For Patients: As a result of the 21st Century Cures Act, medical imaging exams and procedure reports are released immediately into your electronic medical record. You may view this report before your referring provider. If you have questions, please contact your health care provider. INDICATION: Right abdominal pain TECHNIQUE: 7.3 mCi of technetium-99m Mebrofenin were administered IV and anterior abdominal imaging was performed at 5 minute intervals over the course of 60 minutes. 1.5 mcg of CCK were then injected IV and additional anterior abdominal imaging at 1 minute intervals was performed for 30 additional minutes. Gallbladder activity was quantitated over this time-frame and an ejection fraction was calculated. COMPARISON: None FINDINGS: There is prompt homogeneous uptake of the radiotracer by the hepatic parenchyma. Bile duct and gallbladder activity is first demonstrated at 10 minutes and bowel activity is first noted at 10 minutes. The gallbladder ejection fraction is normal at 90 percent. IMPRESSION: Normal hepatobiliary scan and gallbladder ejection fraction. Dictated by Lico Mathis MD @ 08/11/2025 8:36:25 AM (Electronically Signed)
== END 2025-08-10 12:11 | disposition home or self-care (01) ==
LOC: NM 12:12
PROVIDERS: PCP Family Medicine; Visit Provider Surgery
DX: R10.9 Unspecified abdominal pain (principal)
CPT/HCPCS: 78227; T1013; A9537; J2805